=== PATIENT | male | born 1955 | race Caucasian/White ===

== ENCOUNTER 2017-11-28 10:07 | Day surgery (SDC) | payer OTHER ==
[2017-11-28] MEDS: NS 1,000 ML IV (10:00)
[2017-11-28] MEDS ORDERED: PROPOFOL 200 MG/20 ML VIAL As Ordered ×2 (10:49→11:18)
[2017-11-28] MEDS ORDERED: LIDOCAINE 2% INJ 100 MG/5 ML SDV (FOR ANES.) As Ordered (10:49)
[2017-11-28] MEDS ORDERED: fentaNYL 100 MCG/2 ML INJECTION (J3010) As Ordered (10:50)
== END 2017-11-28 12:28 | disposition home or self-care (01) ==
LOC: M OPP 10:07
DX: Z12.11 Encounter for screening for malignant neoplasm of colon (principal); D12.7 Benign neoplasm of rectosigmoid junction; D12.3 Benign neoplasm of transverse colon; D12.4 Benign neoplasm of descending colon; D12.5 Benign neoplasm of sigmoid colon; K57.30 Diverticulosis of large intestine without perforation or abscess without bleeding; R13.10 Dysphagia, unspecified; K29.70 Gastritis, unspecified, without bleeding; K29.80 Duodenitis without bleeding; K22.8 Other specified diseases of esophagus; K44.9 Diaphragmatic hernia without obstruction or gangrene; I10 Essential (primary) hypertension; M19.90 Unspecified osteoarthritis, unspecified site; Z79.82 Long term (current) use of aspirin; Z79.899 Other long term (current) drug therapy; Z83.71 Family history of colonic polyps
CPT/HCPCS: 45385

== ENCOUNTER 2018-03-16 18:10 | Emergency (ER) | payer OTHER ==
[2018-03-16] MEDS: NS 1,000 ML IV (19:19)
[2018-03-16 19:20] LABS: BASO % 0.6 % (0.0-1.0); EOS # 0.1 10^3/uL (0.0-0.50); EOS % 1.7 % (0.0-3.0); IMMATURE GRANULOCYTE % 0.2 % (0-3.0); LYMPH # 1.4 10^3/uL (1.5-4.5); LYMPH % 28.2 % (24.0-44.0); MEAN CORPUSCULAR HEMOGLOBIN 30.2 pg (27.0-33.0); MEAN CORPUSCULAR VOLUME 86.4 fl (80.0-96.0); MONO # 0.6 10^3/uL (0.0-0.8); MONO % 13.1 % (0.0-5.0); NEUTROPHILS # 2.7 10^3/uL (1.8-7.7); NEUTROPHILS % 56.2 % (36.0-66.0); PLATELET COUNT, AUTOMATED 184 10^3/uL (150-450); RED BLOOD COUNT 4.63 10^6/uL (4.30-6.10); RED CELL DISTRIBUTION WIDTH 13.2 % (11.5-14.5); WHITE BLOOD COUNT 4.8 10^3/uL (4.0-10.0)
[2018-03-16 19:57] LABS: ANION GAP 12 MEQ/L (8-16); BLOOD UREA NITROGEN 19 MG/DL (7-18); CALCIUM LEVEL 9.8 MG/DL (8.8-10.2); CARBON DIOXIDE LEVEL 25 MEQ/L (21-32); CHLORIDE LEVEL 98 MEQ/L (98-107); CPK CREATINE PHOSPHOKINASE 110 U/L (39-308); CREATININE FOR GFR 1.08 MG/DL (0.70-1.30); GLOMERULAR FILTRATION RATE > 60.0 (>49); GLUCOSE, FASTING 93 MG/DL (70-100); POTASSIUM SERUM 4.3 MEQ/L (3.5-5.1); SODIUM LEVEL 135 MEQ/L (136-145); TROPONIN I < 0.02 NG/ML (< 0.10)
[2018-03-16 20:02] LABS: CK-MB VALUE MASS 1.1 NG/ML (<3.6)
== END 2018-03-16 20:22 | disposition home or self-care (01) ==
LOC: M ED 18:10
DX: F41.1 Generalized anxiety disorder (principal); I10 Essential (primary) hypertension; M19.90 Unspecified osteoarthritis, unspecified site; M10.9 Gout, unspecified; K21.9 Gastro-esophageal reflux disease without esophagitis; Z79.899 Other long term (current) drug therapy; Z79.82 Long term (current) use of aspirin
CPT/HCPCS: 93005

== ENCOUNTER 2018-07-10 11:23 | Day surgery (SDC) | payer OTHER ==
[2018-07-10] MEDS: NS 1,000 ML IV (11:30)
[2018-07-10] MEDS ORDERED: LIDOCAINE 2% INJ 100 MG/5 ML SDV (FOR ANES.) As Ordered (12:21)
[2018-07-10] MEDS ORDERED: PROPOFOL 200 MG/20 ML VIAL As Ordered (12:21)
== END 2018-07-10 13:19 | disposition home or self-care (01) ==
LOC: M OPP 11:23
DX: Z09 Encounter for follow-up examination after completed treatment for conditions other than malignant neoplasm (principal); Z86.010 Personal history of colon polyps; D12.5 Benign neoplasm of sigmoid colon; K57.30 Diverticulosis of large intestine without perforation or abscess without bleeding; I10 Essential (primary) hypertension; Z79.82 Long term (current) use of aspirin; Z79.899 Other long term (current) drug therapy
CPT/HCPCS: 45385

== ENCOUNTER → 2020-05-03 | Outpatient (CLI) | payer BC, SELFPAY ==
[~2020-05-03] MED LIST: ALLO100T PO; ASPI-1 PO; LISI20TA20 PO; LISINOPRIL-HCTZ PO; OMEP40CA97 PO
== END ==
LOC: M LABSMTC 12:12
PROVIDERS: ATTEND Pediatrics
DX: Z11.59 Encounter for screening for other viral diseases (principal)

== ENCOUNTER → 2021-03-03 | Outpatient (CLI) | payer MEDICARE, BC ==
[~2021-03-03] MED LIST changes: +OMEP40CA4 PO; -OMEP40CA97 PO
--- NOTE | 2021-03-03 13:42 | REP ---
INDICATION: PAIN COMPARISON: None. TECHNIQUE: AP, lateral, bilateral oblique views left hand. FINDINGS: Generalized age-related changes are appreciated. There is no evidence for acute fracture or dislocation. Very small 1-2 mm presumed chronic foreign body identified in the soft tissue along the distal aspect of the 3rd proximal phalanx. Remainder of the examination appears relatively normal. IMPRESSION: Generalized age-related changes. <Electronically signed by John Crain > 03/03/21 [id number]
== END ==
LOC: M WUC 13:11
PROVIDERS: ATTEND Nurse Practitioner Family
DX: M79.645 Pain in left finger(s) (principal)

== ENCOUNTER 2022-01-11 06:25 | Emergency (ER) | payer MEDICARE, BC ==
[~2022-01-11] VITALS: Ht 177.8 cm; Wt 79.5 kg
[~2022-01-11 06:25] MED LIST changes: -LISI20TA20 PO; +LISI20TA37 PO
[2022-01-11 08:35] LABS: BASO % 0.4 % (0.0-1.0); EOS # 0.1 10^3/uL (0.0-0.5); EOS % 2.6 % (0.0-3.0); HEMOGLOBIN 14.1 g/dl (13.5-17.5); LYMPH # 1.6 10^3/uL (1.5-5.0); LYMPH % 34.2 % (24.0-44.0); MEAN CORPUSCULAR HEMOGLOBIN 31.1 pg (27.0-33.0); MEAN CORPUSCULAR HGB CONC 33.6 g/dl (32.0-36.5); MEAN CORPUSCULAR VOLUME 92.7 fl (80.0-96.0); MONO # 0.8 10^3/uL (0.0-0.8); MONO % 17.3 % (2.0-8.0); NEUTROPHILS # 2.1 10^3/uL (1.5-8.5); NEUTROPHILS % 45.3 % (36.0-66.0); PLATELET COUNT, AUTOMATED 172 10^3/uL (150-450); RED BLOOD COUNT 4.53 10^6/uL (4.30-6.10); WHITE BLOOD COUNT 4.7 10^3/uL (4.0-10.0)
[2022-01-11 08:46] LABS: INR 0.97; PROTHROMBIN TIME 13.3 SECONDS (12.7-14.5)
[2022-01-11 09:07] LABS: ALBUMIN 4.1 GM/DL (3.2-5.2); BILIRUBIN,DIRECT 0.1 MG/DL (0.0-0.2); BILIRUBIN,TOTAL 0.5 MG/DL (0.2-1.0); CALCIUM LEVEL 10.3 MG/DL (8.8-10.2); CREATININE FOR GFR 1.45 MG/DL (0.70-1.30); GLOMERULAR FILTRATION RATE 51.8 (>49); POTASSIUM SERUM 4.4 MEQ/L (3.5-5.1); TOTAL PROTEIN 8.4 GM/DL (6.4-8.2)
[2022-01-11 09:09] LABS: CK-MB VALUE MASS < 1.0 NG/ML (<3.6); CPK CREATINE PHOSPHOKINASE 89 U/L (39-308); MB/CK RELATIVE INDEX 1.12 (< OR =4)
[2022-01-11 10:26] LABS: CK-MB VALUE MASS < 1.0 NG/ML (<3.6); CPK CREATINE PHOSPHOKINASE 89 U/L (39-308); MB/CK RELATIVE INDEX 1.12 (< OR =4)
[2022-01-11 11:14] VITALS: BP 163/84
== END 2022-01-11 11:33 | disposition home or self-care (01) ==
LOC: M ED 06:25
DX: R07.9 Chest pain, unspecified (principal); R94.31 Abnormal electrocardiogram [ECG] [EKG]; I10 Essential (primary) hypertension; Z79.82 Long term (current) use of aspirin; Z79.899 Other long term (current) drug therapy

== ENCOUNTER → 2022-06-04 | Outpatient (CLI) | payer MEDICARE, BC | LOC: M LABSMTC 11:24 | PROVIDERS: ATTEND Anesthesiology | DX: Z01.812 Encounter for preprocedural laboratory examination (principal); Z20.822 Contact with and (suspected) exposure to COVID-19 ==

== ENCOUNTER 2022-06-07 09:51 | Day surgery (SDC) | payer MEDICARE, BC ==
[~2022-06-07] VITALS: Ht 177.8 cm; Wt 79.7 kg
[~2022-06-07 09:51] MED LIST changes: +NS 1,000 ML IV ONE
[2022-06-07] MEDS ORDERED: LIDOCAINE 2% 100MG/5ML SDV (FOR ANES.) As Ordered ONE (10:00)
[2022-06-07] MEDS ORDERED: propofoL 200 MG/20 ML VIAL As Ordered ONE (10:00)
[2022-06-07 11:33] VITALS: BP 100/67
== END 2022-06-07 11:50 | disposition home or self-care (01) ==
LOC: M OPP 09:51
PROVIDERS: ATTEND Surgery
DX: Z12.11 Encounter for screening for malignant neoplasm of colon (principal); Z86.010 Personal history of colon polyps; Z79.82 Long term (current) use of aspirin; Z79.899 Other long term (current) drug therapy; I10 Essential (primary) hypertension; M13.80 Other specified arthritis, unspecified site; Z87.39 Personal history of other diseases of the musculoskeletal system and connective tissue

== ENCOUNTER 2022-08-11 17:51 | Inpatient (IN) | payer MEDICARE, BC ==
[~2022-08-11] VITALS: Ht 177.8 cm; Wt 82.1 kg
[~2022-08-11 17:51] MED LIST changes: -NS 1,000 ML IV ONE
[2022-08-11] MEDS ORDERED: PRED20TA PO (18:05)
[2022-08-11] MEDS ORDERED: ONDANSETRON 4MG 2ML VIAL IV ONE (20:25)
[2022-08-11] MEDS ORDERED: MORPHINE 4 MG/ML 1ML VIAL IV ONE ×3 (20:25→23:45)
[2022-08-11] MEDS ORDERED: NS 1,000 ML IV ONE ×2 (20:30→22:40)
[2022-08-11 21:10] LABS: BASO % 0.1 % (0.0-1.0); EOS % 0.1 % (0.0-3.0); HEMATOCRIT 41.1 % (42.0-52.0); LYMPH # 1.8 10^3/uL (1.5-5.0); LYMPH % 10.4 % (24.0-44.0); MEAN CORPUSCULAR HEMOGLOBIN 30.6 pg (27.0-33.0); MEAN CORPUSCULAR HGB CONC 34.1 g/dl (32.0-36.5); MEAN CORPUSCULAR VOLUME 89.7 fl (80.0-96.0); MONO % 14.1 % (2.0-8.0); NEUTROPHILS # 12.7 10^3/uL (1.5-8.5); NEUTROPHILS % 74.8 % (36.0-66.0); PLATELET COUNT, AUTOMATED 236 10^3/uL (150-450); RED BLOOD COUNT 4.58 10^6/uL (4.30-6.10)
[2022-08-11 21:25] LABS: BILIRUBIN,TOTAL 0.8 MG/DL (0.3-1.2); CALCIUM LEVEL 9.8 MG/DL (8.3-10.6); CREATININE FOR GFR 1.46 MG/DL (0.70-1.30); GLOMERULAR FILTRATION RATE 51.4 (>49); POTASSIUM SERUM 5.1 MMOL/L (3.5-5.1); TOTAL PROTEIN 8.1 G/DL (5.7-8.2)
[2022-08-11 21:33] LABS: RSV AMPLIFICATION NEGATIVE (NEGATIVE)
[2022-08-11] MEDS ORDERED: ISOVUE-370 76% 100ML VIAL As Ordered ONE (21:35)
[2022-08-11 21:47] LABS: MONO # 2.4 10^3/uL (0.0-0.8)
[2022-08-11] MEDS ORDERED: PIPERACILLIN/TAZOBACTAM SOD 3.375 GM in D5W MINI-BAG PLUS 50 ML IV ONE (23:15)
[2022-08-11] MEDS ORDERED: VANCOMYCIN HCL 2,000 MG in IV FLUID PLACE HOLDER 1 EA IV ONE (23:15)
[2022-08-11] MEDS ORDERED: ASPI81TA26 PO (23:27)
[2022-08-11] MEDS ORDERED: HOME MED LIST COMPLETE! XX SCH (23:30)
[2022-08-12] MEDS ORDERED: VANCOMYCIN HCL 1,000 MG, VIAL MATE ADAPTER 1 EACH in D5W 250 ML IV ONE ×3
[2022-08-12] MEDS ORDERED: VANCOMYCIN HCL 1,000 MG, VIAL MATE ADAPTER 1 EACH in NS 250 ML IV SCH (00:10)
[2022-08-12] MEDS ORDERED: amLODIPine 5 MG TAB PO ONE (00:10)
[2022-08-12] MEDS ORDERED: LORazepam 2 MG TAB PO PRN (00:20)
[2022-08-12 00:22] LABS: C REACTIVE PROTEIN QUANTITATIV 15.5 MG/DL (<1.0)
[2022-08-12] MEDS ORDERED: LR 1,000 ML IV SCH (00:30)
[2022-08-12] MEDS ORDERED: **hydrALAZINE** 50 MG TAB PO PRN (00:50)
[2022-08-12] MEDS ORDERED: VANCOMYCIN HCL 750 MG, VIAL MATE ADAPTER 1 EACH in D5W 250 ML IV ONE ×6 (01:00)
[2022-08-12 02:00] VITALS: BP 162/98
[2022-08-12] MEDS: ACETAMINOPHEN TAB 650MG DOSE (2X325MG) PO PRN (02:34)
[2022-08-12] MEDS: MORPHINE 4 MG/ML 1ML VIAL IV PRN ×5 (02:34→19:51)
[2022-08-12] MEDS ORDERED: HYDROMORPHONE HCL 0.5 MG/ 0.5 ML SYRINGE (J1170 PER 1) IV ONE (03:15)
[2022-08-12 05:15] VITALS: BP 175/108
[2022-08-12 06:26] LABS: HEMATOCRIT 40.4 % (42.0-52.0); HEMOGLOBIN 13.6 g/dl (13.5-17.5); MEAN CORPUSCULAR HEMOGLOBIN 30.7 pg (27.0-33.0); MEAN CORPUSCULAR HGB CONC 33.7 g/dl (32.0-36.5); MEAN CORPUSCULAR VOLUME 91.2 fl (80.0-96.0); PLATELET COUNT, AUTOMATED 176 10^3/uL (150-450); RED BLOOD COUNT 4.43 10^6/uL (4.30-6.10); WHITE BLOOD COUNT 10.6 10^3/uL (4.0-10.0)
[2022-08-12] MEDS: PIPERACILLIN/TAZOBACTAM SOD 3.375 GM in D5W MINI-BAG PLUS 50 ML IV SCH ×3 (06:41→17:25)
[2022-08-12 06:54] LABS: MAGNESIUM LEVEL 1.5 MG/DL (1.8-2.4)
[2022-08-12 07:11] LABS: BLOOD UREA NITROGEN 22 MG/DL (9-23); CALCIUM LEVEL 8.7 MG/DL (8.3-10.6); CARBON DIOXIDE LEVEL 20 MMOL/L (20-31); CHLORIDE LEVEL 99 MMOL/L (98-107); CREATININE FOR GFR 1.13 MG/DL (0.70-1.30); GLOMERULAR FILTRATION RATE > 60.0 (>49); GLUCOSE, FASTING 107 MG/DL (74-106); SODIUM LEVEL 129 MMOL/L (136-145)
[2022-08-12 07:31] VITALS: BP 137/83
[2022-08-12] MEDS: MULTIVITAMINS/MINERALS THERAP 1 TAB PO SCH (08:11)
[2022-08-12] MEDS: THIAMINE 100 MG TAB PO SCH ×2 (08:11→19:50)
[2022-08-12] MEDS: FOLIC ACID 1MG TAB PO SCH (08:11)
[2022-08-12] MEDS: NS 1,000 ML IV SCH ×2 (08:11→17:24)
[2022-08-12] MEDS: ASPIRIN 81MG ENTERIC TABLET PO SCH (08:11)
[2022-08-12] MEDS ORDERED: amLODIPine 5 MG TAB PO SCH (09:00)
[2022-08-12] MEDS: ENOXAPARIN 30MG/0.3ML SYRINGE (J1650 PER 10MG) SC SCH (09:00)
[2022-08-12 09:23] LABS: ERYTHROCYTE SEDIMENTATION RATE 53 mm/hr (0-20)
[2022-08-12] MEDS: OXAZEPAM 15MG CAP PO SCH ×3 (12:00→23:25)
[2022-08-12] MEDS ORDERED: MAGNESIUM OXIDE 400MG TAB (MAG-OX) PO ONE (13:15)
[2022-08-12] MEDS: VANCOMYCIN HCL 1,000 MG, VIAL MATE ADAPTER 1 EACH in D5W 250 ML IV SCH (13:52)
[2022-08-12 14:00] VITALS: BP 134/82
[2022-08-12 14:48] LABS: BLOOD UREA NITROGEN 26 MG/DL (9-23); CALCIUM LEVEL 8.5 MG/DL (8.3-10.6); CARBON DIOXIDE LEVEL 22 MMOL/L (20-31); CHLORIDE LEVEL 98 MMOL/L (98-107); CREATININE FOR GFR 1.13 MG/DL (0.70-1.30); GLOMERULAR FILTRATION RATE > 60.0 (>49); GLUCOSE, FASTING 121 MG/DL (74-106); POTASSIUM SERUM 4.5 MMOL/L (3.5-5.1); SODIUM LEVEL 130 MMOL/L (136-145)
[2022-08-12 21:20] VITALS: BP 124/76
[2022-08-13] MEDS: PIPERACILLIN/TAZOBACTAM SOD 3.375 GM in D5W MINI-BAG PLUS 50 ML IV SCH ×2 (00:05→06:16)
[2022-08-13] MEDS: MORPHINE 4 MG/ML 1ML VIAL IV PRN ×4 (00:06→19:44)
[2022-08-13] MEDS: VANCOMYCIN HCL 1,000 MG, VIAL MATE ADAPTER 1 EACH in D5W 250 ML IV SCH ×2 (02:16→15:21)
[2022-08-13 04:50] VITALS: BP 110/73
[2022-08-13] MEDS: OXAZEPAM 15MG CAP PO SCH ×3 (04:52→18:00)
[2022-08-13 05:49] LABS: HEMATOCRIT 37.5 % (42.0-52.0); HEMOGLOBIN 12.5 g/dl (13.5-17.5); MEAN CORPUSCULAR HEMOGLOBIN 30.7 pg (27.0-33.0); MEAN CORPUSCULAR HGB CONC 33.3 g/dl (32.0-36.5); MEAN CORPUSCULAR VOLUME 92.1 fl (80.0-96.0); PLATELET COUNT, AUTOMATED 177 10^3/uL (150-450); RED BLOOD COUNT 4.07 10^6/uL (4.30-6.10); WHITE BLOOD COUNT 10.5 10^3/uL (4.0-10.0)
[2022-08-13 06:14] LABS: MAGNESIUM LEVEL 1.3 MG/DL (1.8-2.4)
[2022-08-13 06:16] LABS: BLOOD UREA NITROGEN 22 MG/DL (9-23); CALCIUM LEVEL 7.8 MG/DL (8.3-10.6); CARBON DIOXIDE LEVEL 20 MMOL/L (20-31); CHLORIDE LEVEL 99 MMOL/L (98-107); CREATININE FOR GFR 1.05 MG/DL (0.70-1.30); GLOMERULAR FILTRATION RATE > 60.0 (>49); GLUCOSE, FASTING 105 MG/DL (74-106); POTASSIUM SERUM 4.2 MMOL/L (3.5-5.1); SODIUM LEVEL 131 MMOL/L (136-145)
[2022-08-13 06:24] LABS: ERYTHROCYTE SEDIMENTATION RATE 62 mm/hr (0-20)
[2022-08-13 08:00] VITALS: BP 105/64
[2022-08-13] MEDS ORDERED: MAGNESIUM OXIDE 400MG TAB (MAG-OX) PO ONE (08:00)
[2022-08-13] MEDS: MULTIVITAMINS/MINERALS THERAP 1 TAB PO SCH (08:12)
[2022-08-13] MEDS: ASPIRIN 81MG ENTERIC TABLET PO SCH (08:12)
[2022-08-13] MEDS: FOLIC ACID 1MG TAB PO SCH (08:12)
[2022-08-13] MEDS: THIAMINE 100 MG TAB PO SCH ×2 (08:13→21:01)
[2022-08-13] MEDS: ENOXAPARIN 30MG/0.3ML SYRINGE (J1650 PER 10MG) SC SCH (08:15)
[2022-08-13] MEDS ORDERED: amLODIPine 5 MG TAB PO SCH (09:00)
[2022-08-13 14:00] VITALS: BP 103/64
[2022-08-13] MEDS ORDERED: PROHANCE 279.3MG/ML 15ML VIAL As Ordered ONE (17:30)
[2022-08-13 21:00] VITALS: BP 124/81
[2022-08-13] MEDS: ACETAMINOPHEN TAB 650MG DOSE (2X325MG) PO PRN (21:03)
[2022-08-14] MEDS: OXAZEPAM 15MG CAP PO SCH ×2 (00:30→06:02)
[2022-08-14] MEDS: MORPHINE 4 MG/ML 1ML VIAL IV PRN ×4 (00:34→20:02)
[2022-08-14] MEDS: VANCOMYCIN HCL 1,000 MG, VIAL MATE ADAPTER 1 EACH in D5W 250 ML IV SCH ×2 (02:50→14:30)
[2022-08-14 04:40] VITALS: BP 125/82
[2022-08-14 05:36] LABS: HEMATOCRIT 37.3 % (42.0-52.0); HEMOGLOBIN 12.6 g/dl (13.5-17.5); MEAN CORPUSCULAR HEMOGLOBIN 30.9 pg (27.0-33.0); MEAN CORPUSCULAR HGB CONC 33.8 g/dl (32.0-36.5); MEAN CORPUSCULAR VOLUME 91.4 fl (80.0-96.0); PLATELET COUNT, AUTOMATED 192 10^3/uL (150-450); RED BLOOD COUNT 4.08 10^6/uL (4.30-6.10); WHITE BLOOD COUNT 10.2 10^3/uL (4.0-10.0)
[2022-08-14 06:02] LABS: MAGNESIUM LEVEL 1.7 MG/DL (1.8-2.4)
[2022-08-14 06:04] LABS: BLOOD UREA NITROGEN 19 MG/DL (9-23); CALCIUM LEVEL 8.5 MG/DL (8.3-10.6); CARBON DIOXIDE LEVEL 26 MMOL/L (20-31); CHLORIDE LEVEL 98 MMOL/L (98-107); CREATININE FOR GFR 0.93 MG/DL (0.70-1.30); GLOMERULAR FILTRATION RATE > 60.0 (>49); GLUCOSE, FASTING 112 MG/DL (74-106); POTASSIUM SERUM 3.8 MMOL/L (3.5-5.1); SODIUM LEVEL 133 MMOL/L (136-145)
[2022-08-14] MEDS: FOLIC ACID 1MG TAB PO SCH (08:25)
[2022-08-14] MEDS: MAGNESIUM OXIDE 400MG TAB (MAG-OX) PO SCH ×2 (08:25→20:02)
[2022-08-14] MEDS: ASPIRIN 81MG ENTERIC TABLET PO SCH (08:25)
[2022-08-14] MEDS: MULTIVITAMINS/MINERALS THERAP 1 TAB PO SCH (08:25)
[2022-08-14] MEDS: THIAMINE 100 MG TAB PO SCH ×2 (08:25→20:02)
[2022-08-14] MEDS: ENOXAPARIN 40MG/0.4ML SYRINGE (J1650 PER 10MG) SC SCH (08:32)
[2022-08-14 13:52] VITALS: BP 124/81
[2022-08-14] MEDS: NS 1,000 ML IV SCH ×2 (14:30→20:15)
[2022-08-14] MEDS ORDERED: LIDOCAINE 2% 100MG/5ML SDV (FOR ANES.) As Ordered ONE (17:37)
[2022-08-14] MEDS ORDERED: propofoL 200 MG/20 ML VIAL As Ordered ONE ×2 (17:37→18:31)
[2022-08-14] MEDS ORDERED: MIDAZOLAM INJ 2MG/2ML VIAL (J2250 PER 1MG) As Ordered ONE (17:37)
[2022-08-14] MEDS ORDERED: fentaNYL 100 MCG/2 ML INJECTION As Ordered ONE (17:37)
[2022-08-14] MEDS ORDERED: LIDOCAINE 1% SDV 30ML VIAL As Ordered ONE (18:13)
[2022-08-14] MEDS: ACETAMINOPHEN TAB 650MG DOSE (2X325MG) PO PRN (20:02)
[2022-08-14 20:30] VITALS: BP 127/73
[2022-08-14 21:00] VITALS: BP 108/66
[2022-08-14 22:00] VITALS: BP 107/67
[2022-08-14 23:00] VITALS: BP 112/79
[2022-08-15 01:00] VITALS: BP 109/69
[2022-08-15] MEDS: VANCOMYCIN HCL 1,000 MG, VIAL MATE ADAPTER 1 EACH in D5W 250 ML IV SCH ×2 (02:18→14:48)
[2022-08-15 02:27] VITALS: BP 114/72
[2022-08-15] MEDS: NS 1,000 ML IV SCH ×3 (02:36→21:05)
[2022-08-15] MEDS: MORPHINE 4 MG/ML 1ML VIAL IV PRN ×3 (02:36→12:30)
[2022-08-15 05:00] VITALS: BP 111/77
[2022-08-15 06:22] LABS: HEMATOCRIT 34.1 % (42.0-52.0); HEMOGLOBIN 11.3 g/dl (13.5-17.5); MEAN CORPUSCULAR HEMOGLOBIN 30.6 pg (27.0-33.0); MEAN CORPUSCULAR HGB CONC 33.1 g/dl (32.0-36.5); MEAN CORPUSCULAR VOLUME 92.4 fl (80.0-96.0); PLATELET COUNT, AUTOMATED 209 10^3/uL (150-450); RED BLOOD COUNT 3.69 10^6/uL (4.30-6.10); WHITE BLOOD COUNT 10.3 10^3/uL (4.0-10.0)
[2022-08-15 06:55] LABS: MAGNESIUM LEVEL 1.7 MG/DL (1.8-2.4)
[2022-08-15 06:57] LABS: BLOOD UREA NITROGEN 21 MG/DL (9-23); CALCIUM LEVEL 8.3 MG/DL (8.3-10.6); CARBON DIOXIDE LEVEL 26 MMOL/L (20-31); CHLORIDE LEVEL 97 MMOL/L (98-107); CREATININE FOR GFR 1.14 MG/DL (0.70-1.30); GLOMERULAR FILTRATION RATE > 60.0 (>49); GLUCOSE, FASTING 104 MG/DL (74-106); POTASSIUM SERUM 3.7 MMOL/L (3.5-5.1); SODIUM LEVEL 132 MMOL/L (136-145)
[2022-08-15] MEDS ORDERED: MAG SULF 1GM/100ML (MAG RUN) 1 GM in IV 1 EA IV ONE (08:00)
[2022-08-15] MEDS: FOLIC ACID 1MG TAB PO SCH (08:30)
[2022-08-15] MEDS: ASPIRIN 81MG ENTERIC TABLET PO SCH (08:30)
[2022-08-15] MEDS: ENOXAPARIN 40MG/0.4ML SYRINGE (J1650 PER 10MG) SC SCH (08:30)
[2022-08-15] MEDS: MAGNESIUM OXIDE 400MG TAB (MAG-OX) PO SCH ×2 (08:30→21:06)
[2022-08-15] MEDS: MULTIVITAMINS/MINERALS THERAP 1 TAB PO SCH (08:30)
[2022-08-15 14:00] VITALS: BP 126/74
[2022-08-15] MEDS ORDERED: CETACAINE SPRAY 5GM As Ordered ONE (15:31)
[2022-08-15] MEDS ORDERED: LIDOCAINE VISCOUS 2% SOLN 15ML UDC As Ordered ONE (15:31)
[2022-08-15] MEDS ORDERED: fentaNYL 100 MCG/2 ML INJECTION As Ordered ONE (17:25)
[2022-08-15] MEDS ORDERED: propofoL 500 MG/50 ML VIAL As Ordered ONE (17:25)
[2022-08-15] MEDS ORDERED: MIDAZOLAM INJ 2MG/2ML VIAL (J2250 PER 1MG) As Ordered ONE (17:25)
[2022-08-15] MEDS ORDERED: LR 1,000 ML IV SCH (18:20)
[2022-08-15] MEDS ORDERED: ONDANSETRON 4MG 2ML VIAL IV PRN (18:20)
[2022-08-15 19:01] VITALS: BP 121/75
[2022-08-15 22:00] VITALS: BP 117/72
[2022-08-16] MEDS: MORPHINE 4 MG/ML 1ML VIAL IV PRN ×4 (00:16→20:59)
[2022-08-16] MEDS: VANCOMYCIN HCL 1,000 MG, VIAL MATE ADAPTER 1 EACH in D5W 250 ML IV SCH ×2 (01:56→15:08)
[2022-08-16] MEDS: NS 1,000 ML IV SCH ×3 (04:16→20:59)
[2022-08-16 06:00] VITALS: BP_SYST 113; BP_SYST 142; BP_DIAS 67; BP_DIAS 78
[2022-08-16 06:25] LABS: HEMATOCRIT 32.9 % (42.0-52.0); HEMOGLOBIN 11.2 g/dl (13.5-17.5); MEAN CORPUSCULAR HEMOGLOBIN 31.3 pg (27.0-33.0); MEAN CORPUSCULAR VOLUME 91.9 fl (80.0-96.0); PLATELET COUNT, AUTOMATED 194 10^3/uL (150-450); RED BLOOD COUNT 3.58 10^6/uL (4.30-6.10); WHITE BLOOD COUNT 8.9 10^3/uL (4.0-10.0)
[2022-08-16 06:44] LABS: MAGNESIUM LEVEL 1.7 MG/DL (1.8-2.4)
[2022-08-16 06:46] LABS: BLOOD UREA NITROGEN 16 MG/DL (9-23); CALCIUM LEVEL 8.1 MG/DL (8.3-10.6); CARBON DIOXIDE LEVEL 27 MMOL/L (20-31); CHLORIDE LEVEL 98 MMOL/L (98-107); CREATININE FOR GFR 1.02 MG/DL (0.70-1.30); GLOMERULAR FILTRATION RATE > 60.0 (>49); GLUCOSE, FASTING 100 MG/DL (74-106); POTASSIUM SERUM 3.6 MMOL/L (3.5-5.1); SODIUM LEVEL 134 MMOL/L (136-145)
[2022-08-16 08:22] LABS: INR 1.11; PROTHROMBIN TIME 14.5 SECONDS (12.5-14.5)
[2022-08-16 08:23] LABS: PARTIAL THROMBOPLASTIN TIME 32.6 SECONDS (24.8-34.2)
[2022-08-16] MEDS: MULTIVITAMINS/MINERALS THERAP 1 TAB PO SCH (08:50)
[2022-08-16] MEDS: ASPIRIN 81MG ENTERIC TABLET PO SCH (08:50)
[2022-08-16] MEDS: MAGNESIUM OXIDE 400MG TAB (MAG-OX) PO SCH ×3 (08:50→20:59)
[2022-08-16] MEDS: FOLIC ACID 1MG TAB PO SCH (08:50)
[2022-08-16] MEDS: ENOXAPARIN 40MG/0.4ML SYRINGE (J1650 PER 10MG) SC SCH (08:52)
[2022-08-16 09:19] VITALS: BP 107/74
[2022-08-16 14:00] VITALS: BP 110/69
[2022-08-16 15:16] LABS: ERYTHROCYTE SEDIMENTATION RATE 126 mm/hr (0-20)
[2022-08-16] MEDS: MORPHINE 2 MG/ML 1ML VIAL IV PRN (16:51)
[2022-08-16 21:55] VITALS: BP 120/70
[2022-08-17] MEDS: MORPHINE 4 MG/ML 1ML VIAL IV PRN ×6 (00:36→23:15)
[2022-08-17] MEDS: VANCOMYCIN HCL 1,000 MG, VIAL MATE ADAPTER 1 EACH in D5W 250 ML IV SCH ×2 (02:08→14:14)
[2022-08-17] MEDS: NS 1,000 ML IV SCH ×2 (05:34→23:15)
[2022-08-17 05:42] VITALS: BP 114/65
[2022-08-17 06:12] LABS: HEMATOCRIT 31.6 % (42.0-52.0); HEMOGLOBIN 10.6 g/dl (13.5-17.5); MEAN CORPUSCULAR HEMOGLOBIN 30.8 pg (27.0-33.0); MEAN CORPUSCULAR HGB CONC 33.5 g/dl (32.0-36.5); MEAN CORPUSCULAR VOLUME 91.9 fl (80.0-96.0); PLATELET COUNT, AUTOMATED 195 10^3/uL (150-450); RED BLOOD COUNT 3.44 10^6/uL (4.30-6.10); WHITE BLOOD COUNT 9.8 10^3/uL (4.0-10.0)
[2022-08-17 06:33] LABS: MAGNESIUM LEVEL 1.6 MG/DL (1.8-2.4)
[2022-08-17 06:35] LABS: BLOOD UREA NITROGEN 13 MG/DL (9-23); CALCIUM LEVEL 7.9 MG/DL (8.3-10.6); CARBON DIOXIDE LEVEL 26 MMOL/L (20-31); CHLORIDE LEVEL 96 MMOL/L (98-107); CREATININE FOR GFR 1.03 MG/DL (0.70-1.30); GLOMERULAR FILTRATION RATE > 60.0 (>49); GLUCOSE, FASTING 98 MG/DL (74-106); POTASSIUM SERUM 3.6 MMOL/L (3.5-5.1); SODIUM LEVEL 132 MMOL/L (136-145)
[2022-08-17] MEDS: MULTIVITAMINS/MINERALS THERAP 1 TAB PO SCH (08:49)
[2022-08-17] MEDS: MAGNESIUM OXIDE 400MG TAB (MAG-OX) PO SCH ×3 (08:49→20:29)
[2022-08-17] MEDS: ASPIRIN 81MG ENTERIC TABLET PO SCH (08:49)
[2022-08-17] MEDS: ENOXAPARIN 40MG/0.4ML SYRINGE (J1650 PER 10MG) SC SCH (08:50)
[2022-08-17] MEDS: FOLIC ACID 1MG TAB PO SCH (08:50)
[2022-08-17] MEDS ORDERED: LIDOCAINE 1% MDV 20ML VIAL As Ordered ONE (10:26)
[2022-08-17 12:20] VITALS: BP 142/52
[2022-08-17 12:38] LABS: URIC ACID 6.6 MG/DL (3.7-9.2)
[2022-08-17 14:00] VITALS: BP 132/54
[2022-08-17] MEDS: SODIUM CHLORIDE 0.9% INJ 10 ML SYR IV SCH (15:27)
[2022-08-17] MEDS ORDERED: MAG SULF 1GM/100ML (MAG RUN) 1 GM in IV 1 EA IV ONE (18:00)
[2022-08-17] MEDS: SODIUM CHLORIDE 0.9% INJ 10 ML SYR IV PRN (19:18)
[2022-08-17 22:00] VITALS: BP 109/72
[2022-08-18] VITALS (12 sets, daily range): BP systolic 100–182; BP diastolic 61–84
[2022-08-18] MEDS: VANCOMYCIN HCL 1,000 MG, VIAL MATE ADAPTER 1 EACH in D5W 250 ML IV SCH ×2 (02:31→14:52)
[2022-08-18] MEDS: SODIUM CHLORIDE 0.9% INJ 10 ML SYR IV SCH ×2 (05:19→17:03)
[2022-08-18 05:48] LABS: HEMATOCRIT 33.7 % (42.0-52.0); HEMOGLOBIN 11.2 g/dl (13.5-17.5); MEAN CORPUSCULAR HEMOGLOBIN 30.4 pg (27.0-33.0); MEAN CORPUSCULAR HGB CONC 33.2 g/dl (32.0-36.5); MEAN CORPUSCULAR VOLUME 91.3 fl (80.0-96.0); PLATELET COUNT, AUTOMATED 262 10^3/uL (150-450); RED BLOOD COUNT 3.69 10^6/uL (4.30-6.10); WHITE BLOOD COUNT 14.2 10^3/uL (4.0-10.0)
[2022-08-18 06:42] LABS: ALBUMIN 2.1 G/DL (3.2-5.2); ALKALINE PHOSPHATASE 79 U/L (46-116); ALT/SGPT 41 U/L (7.0-40); AST/SGOT 35 U/L (<34); BILIRUBIN,TOTAL 0.8 MG/DL (0.3-1.2); BLOOD UREA NITROGEN 17 MG/DL (9-23); CALCIUM LEVEL 8.3 MG/DL (8.3-10.6); CARBON DIOXIDE LEVEL 21 MMOL/L (20-31); CHLORIDE LEVEL 96 MMOL/L (98-107); GLOMERULAR FILTRATION RATE > 60.0 (>49); GLUCOSE, FASTING 101 MG/DL (74-106); POTASSIUM SERUM 3.9 MMOL/L (3.5-5.1); SODIUM LEVEL 132 MMOL/L (136-145); TOTAL PROTEIN 6.2 G/DL (5.7-8.2)
[2022-08-18] MEDS: NS 1,000 ML IV SCH (08:08)
[2022-08-18] MEDS ORDERED: propofoL 200 MG/20 ML VIAL As Ordered ONE (08:17)
[2022-08-18] MEDS ORDERED: MIDAZOLAM INJ 2MG/2ML VIAL (J2250 PER 1MG) As Ordered ONE (08:17)
[2022-08-18] MEDS ORDERED: LIDOCAINE 2% 100MG/5ML SDV (FOR ANES.) As Ordered ONE (08:17)
[2022-08-18] MEDS ORDERED: fentaNYL 100 MCG/2 ML INJECTION As Ordered ONE (08:17)
[2022-08-18] MEDS ORDERED: ACETAMINOPHEN 1000MG 100ML IV BAG As Ordered ONE (08:22)
[2022-08-18] MEDS ORDERED: ONDANSETRON 4MG 2ML VIAL As Ordered ONE (08:22)
[2022-08-18] MEDS ORDERED: VANCOMYCIN 1000MG/20ML VIAL As Ordered ONE (08:34)
[2022-08-18] MEDS ORDERED: ceFAZolin 1GM VIAL As Ordered ONE (08:36)
[2022-08-18] MEDS ORDERED: HYDROmorphone HCL 2MG/ML 1ML VIAL As Ordered ONE (08:51)
[2022-08-18] MEDS: ASPIRIN 81MG ENTERIC TABLET PO SCH (10:49)
[2022-08-18] MEDS: MULTIVITAMINS/MINERALS THERAP 1 TAB PO SCH (10:49)
[2022-08-18] MEDS: MAGNESIUM OXIDE 400MG TAB (MAG-OX) PO SCH ×3 (10:49→21:24)
[2022-08-18] MEDS: FOLIC ACID 1MG TAB PO SCH (10:50)
[2022-08-18 11:22] LABS: SOURCE, BODY FLUID LFT KNEE; SYNOVIAL FLUID COLOR YELLOW (COLORLESS)
[2022-08-18 11:30] LABS: SOURCE, BODY FLUID CRYSTALS LFT KNEE
[2022-08-18 11:38] LABS: CRYSTALS, BODY FLUID URIC ACID AND CCP (NONE SEEN)
[2022-08-18 11:45] LABS: CRYSTALS, BODY FLUID URIC ACID AND CCP (NONE SEEN)
[2022-08-18 11:47] LABS: SOURCE, BODY FLUID CRYSTALS OTHER
[2022-08-18] MEDS: ACETAMINOPHEN TAB 650MG DOSE (2X325MG) PO PRN ×2 (15:50→21:25)
[2022-08-19] MEDS: VANCOMYCIN HCL 1,000 MG, VIAL MATE ADAPTER 1 EACH in D5W 250 ML IV SCH ×2 (02:50→14:57)
[2022-08-19 03:00] VITALS: BP 145/81
[2022-08-19] MEDS: SODIUM CHLORIDE 0.9% INJ 10 ML SYR IV SCH ×2 (05:11→18:26)
[2022-08-19 06:23] LABS: HEMATOCRIT 29.6 % (42.0-52.0); MEAN CORPUSCULAR HEMOGLOBIN 30.9 pg (27.0-33.0); MEAN CORPUSCULAR HGB CONC 33.8 g/dl (32.0-36.5); MEAN CORPUSCULAR VOLUME 91.4 fl (80.0-96.0); PLATELET COUNT, AUTOMATED 200 10^3/uL (150-450); RED BLOOD COUNT 3.24 10^6/uL (4.30-6.10); WHITE BLOOD COUNT 11.1 10^3/uL (4.0-10.0)
[2022-08-19 06:48] LABS: MAGNESIUM LEVEL 2.1 MG/DL (1.8-2.4)
[2022-08-19 06:50] LABS: ALKALINE PHOSPHATASE 86 U/L (46-116); ALT/SGPT 51 U/L (7.0-40); AST/SGOT 47 U/L (<34); BILIRUBIN,TOTAL 0.4 MG/DL (0.3-1.2); BLOOD UREA NITROGEN 21 MG/DL (9-23); CALCIUM LEVEL 8.2 MG/DL (8.3-10.6); CARBON DIOXIDE LEVEL 25 MMOL/L (20-31); CHLORIDE LEVEL 100 MMOL/L (98-107); CREATININE FOR GFR 0.88 MG/DL (0.70-1.30); GLOMERULAR FILTRATION RATE > 60.0 (>49); GLUCOSE, FASTING 139 MG/DL (74-106); POTASSIUM SERUM 3.8 MMOL/L (3.5-5.1); SODIUM LEVEL 136 MMOL/L (136-145); TOTAL PROTEIN 5.6 G/DL (5.7-8.2)
[2022-08-19 07:17] VITALS: BP 135/72
[2022-08-19] MEDS ORDERED: predniSONE 20 MG TAB PO SCH (09:00)
[2022-08-19] MEDS: MULTIVITAMINS/MINERALS THERAP 1 TAB PO SCH (09:47)
[2022-08-19] MEDS: ASPIRIN 81MG ENTERIC TABLET PO SCH (09:47)
[2022-08-19] MEDS: FOLIC ACID 1MG TAB PO SCH (09:47)
[2022-08-19] MEDS: MAGNESIUM OXIDE 400MG TAB (MAG-OX) PO SCH ×3 (09:48→21:04)
[2022-08-19 11:00] VITALS: BP 139/63
[2022-08-19 14:00] VITALS: BP 137/75
[2022-08-19 20:44] VITALS: BP 133/64
[2022-08-20] VITALS (7 sets, daily range): BP systolic 111–150; BP diastolic 66–81
[2022-08-20] MEDS: VANCOMYCIN HCL 1,000 MG, VIAL MATE ADAPTER 1 EACH in D5W 250 ML IV SCH ×2 (01:58→15:53)
[2022-08-20] MEDS: SODIUM CHLORIDE 0.9% INJ 10 ML SYR IV SCH ×2 (05:32→17:59)
[2022-08-20 06:20] LABS: HEMATOCRIT 30.2 % (42.0-52.0); HEMOGLOBIN 10.1 g/dl (13.5-17.5); MEAN CORPUSCULAR HEMOGLOBIN 30.5 pg (27.0-33.0); MEAN CORPUSCULAR HGB CONC 33.4 g/dl (32.0-36.5); MEAN CORPUSCULAR VOLUME 91.2 fl (80.0-96.0); PLATELET COUNT, AUTOMATED 252 10^3/uL (150-450); RED BLOOD COUNT 3.31 10^6/uL (4.30-6.10)
[2022-08-20 06:54] LABS: MAGNESIUM LEVEL 2.1 MG/DL (1.8-2.4)
[2022-08-20 07:01] LABS: ALKALINE PHOSPHATASE 92 U/L (46-116); ALT/SGPT 59 U/L (7.0-40); AST/SGOT 47 U/L (<34); BILIRUBIN,TOTAL 0.3 MG/DL (0.3-1.2); BLOOD UREA NITROGEN 24 MG/DL (9-23); CALCIUM LEVEL 8.1 MG/DL (8.3-10.6); CARBON DIOXIDE LEVEL 26 MMOL/L (20-31); CHLORIDE LEVEL 100 MMOL/L (98-107); CREATININE FOR GFR 0.96 MG/DL (0.70-1.30); GLOMERULAR FILTRATION RATE > 60.0 (>49); GLUCOSE, FASTING 110 MG/DL (74-106); POTASSIUM SERUM 3.5 MMOL/L (3.5-5.1); SODIUM LEVEL 137 MMOL/L (136-145)
[2022-08-20] MEDS: MULTIVITAMINS/MINERALS THERAP 1 TAB PO SCH (09:32)
[2022-08-20] MEDS: ASPIRIN 81MG ENTERIC TABLET PO SCH (09:32)
[2022-08-20] MEDS: FOLIC ACID 1MG TAB PO SCH (09:32)
[2022-08-20] MEDS: MAGNESIUM OXIDE 400MG TAB (MAG-OX) PO SCH ×3 (09:32→20:24)
[2022-08-20] MEDS: MORPHINE 2 MG/ML 1ML VIAL IV PRN (09:32)
[2022-08-20] MEDS ORDERED: propofoL 200 MG/20 ML VIAL As Ordered ONE (12:02)
[2022-08-20] MEDS ORDERED: LIDOCAINE 2% 100MG/5ML SDV (FOR ANES.) As Ordered ONE (12:02)
[2022-08-20] MEDS ORDERED: ONDANSETRON 4MG 2ML VIAL As Ordered ONE (12:02)
[2022-08-20] MEDS ORDERED: MIDAZOLAM INJ 2MG/2ML VIAL (J2250 PER 1MG) As Ordered ONE (12:02)
[2022-08-20] MEDS ORDERED: KETOROLAC 60MG 2ML VIAL As Ordered ONE (12:02)
[2022-08-20] MEDS ORDERED: fentaNYL 100 MCG/2 ML INJECTION As Ordered ONE (12:03)
[2022-08-20] MEDS ORDERED: LR 1,000 ML IV SCH (13:15)
[2022-08-20] MEDS ORDERED: fentaNYL 100 MCG/2 ML INJECTION IV PRN (13:15)
[2022-08-20] MEDS ORDERED: oxyCODONE 5MG TAB PO PRN (13:15)
[2022-08-20] MEDS ORDERED: ONDANSETRON 4MG 2ML VIAL IV PRN (13:15)
[2022-08-20] MEDS ORDERED: HYDROMORPHONE HCL 0.5 MG/ 0.5 ML SYRINGE (J1170 PER 1) IV PRN (13:15)
[2022-08-20] MEDS: SODIUM CHLORIDE 0.9% INJ 10 ML SYR IV PRN (20:25)
[2022-08-20] MEDS: MORPHINE 4 MG/ML 1ML VIAL IV PRN (20:25)
[2022-08-21 00:04] VITALS: BP 124/71
[2022-08-21] MEDS: VANCOMYCIN HCL 1,000 MG, VIAL MATE ADAPTER 1 EACH in D5W 250 ML IV SCH (02:55)
[2022-08-21] MEDS: MORPHINE 4 MG/ML 1ML VIAL IV PRN ×3 (04:28→16:23)
[2022-08-21] MEDS: SODIUM CHLORIDE 0.9% INJ 10 ML SYR IV PRN (04:30)
[2022-08-21 05:24] VITALS: BP 126/71
[2022-08-21] MEDS: SODIUM CHLORIDE 0.9% INJ 10 ML SYR IV SCH (06:00)
[2022-08-21 06:13] LABS: HEMATOCRIT 28.4 % (42.0-52.0); HEMOGLOBIN 9.3 g/dl (13.5-17.5); MEAN CORPUSCULAR HEMOGLOBIN 30.4 pg (27.0-33.0); MEAN CORPUSCULAR HGB CONC 32.7 g/dl (32.0-36.5); MEAN CORPUSCULAR VOLUME 92.8 fl (80.0-96.0); PLATELET COUNT, AUTOMATED 254 10^3/uL (150-450); RED BLOOD COUNT 3.06 10^6/uL (4.30-6.10); WHITE BLOOD COUNT 9.6 10^3/uL (4.0-10.0)
[2022-08-21 06:48] LABS: MAGNESIUM LEVEL 2.5 MG/DL (1.8-2.4)
[2022-08-21 06:50] LABS: ALKALINE PHOSPHATASE 77 U/L (46-116); ALT/SGPT 70 U/L (7.0-40); AST/SGOT 53 U/L (<34); BILIRUBIN,TOTAL 0.3 MG/DL (0.3-1.2); BLOOD UREA NITROGEN 33 MG/DL (9-23); CALCIUM LEVEL 7.6 MG/DL (8.3-10.6); CARBON DIOXIDE LEVEL 27 MMOL/L (20-31); CHLORIDE LEVEL 100 MMOL/L (98-107); CREATININE FOR GFR 1.11 MG/DL (0.70-1.30); GLOMERULAR FILTRATION RATE > 60.0 (>49); GLUCOSE, FASTING 107 MG/DL (74-106); SODIUM LEVEL 136 MMOL/L (136-145); TOTAL PROTEIN 5.8 G/DL (5.7-8.2)
[2022-08-21] MEDS: FOLIC ACID 1MG TAB PO SCH (09:06)
[2022-08-21] MEDS: ASPIRIN 81MG ENTERIC TABLET PO SCH (09:06)
[2022-08-21] MEDS: MULTIVITAMINS/MINERALS THERAP 1 TAB PO SCH (09:06)
[2022-08-21] MEDS: MAGNESIUM OXIDE 400MG TAB (MAG-OX) PO SCH ×2 (09:07→16:25)
[2022-08-21 09:08] VITALS: BP 178/93
[2022-08-21 10:00] VITALS: BP 152/72
[2022-08-21] MEDS ORDERED: VITMTA PO (10:22)
[2022-08-21] MEDS ORDERED: ACET1TAB55 PO (10:22)
[2022-08-21] MEDS ORDERED: FOLI1TAB11 PO (10:22)
[2022-08-21] MEDS ORDERED: OXYC-517 PO (10:33)
[2022-08-21] MEDS ORDERED: DAPTOmycin 750 MG in NS 50 ML IV SCH (17:00)
== END 2022-08-21 17:54 | disposition home or self-care (01) | DRG 854 ==
LOC: M ED 17:51 → EEVIPCON 08-12 00:10 → M ED INP 08-12 00:10 → M MSPAV 08-12 02:02
PROVIDERS: ADMIT Internal Medicine; ATTEND Family Medicine
PROC: 02HV33Z Insertion of Infusion Device into Superior Vena Cava, Percutaneous Approach (ICD-10-PCS; 2022-08-17)
PROC: 0S9D0ZZ Drainage of Left Knee Joint, Open Approach (ICD-10-PCS; 2022-08-18)
PROC: 0SBD0ZZ Excision of Left Knee Joint, Open Approach (ICD-10-PCS; 2022-08-18)
PROC: 0R9P0ZZ Drainage of Left Wrist Joint, Open Approach (ICD-10-PCS; principal; 2022-08-18 08:30)
PROC: 0SBD0ZZ Excision of Left Knee Joint, Open Approach (ICD-10-PCS; 2022-08-20)
DX: A41.02 Sepsis due to Methicillin resistant Staphylococcus aureus (principal); E87.1 Hypo-osmolality and hyponatremia; N17.9 Acute kidney failure, unspecified; M00.832 Arthritis due to other bacteria, left wrist; L02.414 Cutaneous abscess of left upper limb; M00.862 Arthritis due to other bacteria, left knee; I10 Essential (primary) hypertension; I16.0 Hypertensive urgency; B95.62 Methicillin resistant Staphylococcus aureus infection as the cause of diseases classified elsewhere; M10.00 Idiopathic gout, unspecified site; F10.10 Alcohol abuse, uncomplicated; E83.42 Hypomagnesemia; Z79.82 Long term (current) use of aspirin; Z79.899 Other long term (current) drug therapy; Z79.52 Long term (current) use of systemic steroids

== ENCOUNTER → 2022-08-28 | Outpatient (CLI) | payer MEDICARE, BC ==
[~2022-08-28] MED LIST changes: +ACET1TAB55 PO; +ASPI81TA26 PO; +FOLI1TAB11 PO; +OXYC-517 PO; +PRED20TA PO; +VITMTA PO
== END ==
LOC: M SOG 10:18
PROVIDERS: ATTEND Physician Assistant
DX: M00.832 Arthritis due to other bacteria, left wrist (principal); M00.862 Arthritis due to other bacteria, left knee

== ENCOUNTER → 2022-08-28 | Outpatient (CLI) | payer MEDICARE, BC ==
[2022-08-28 17:20] LABS: HEMATOCRIT 37.8 % (42.0-52.0); HEMOGLOBIN 11.8 g/dl (13.5-17.5); MEAN CORPUSCULAR HEMOGLOBIN 29.7 pg (27.0-33.0); MEAN CORPUSCULAR HGB CONC 31.2 g/dl (32.0-36.5); MEAN CORPUSCULAR VOLUME 95.2 fl (80.0-96.0); PLATELET COUNT, AUTOMATED 357 10^3/uL (150-450); RED BLOOD COUNT 3.97 10^6/uL (4.30-6.10)
[2022-08-28 17:32] LABS: ERYTHROCYTE SEDIMENTATION RATE 110 mm/hr (0-20)
[2022-08-28 17:50] LABS: BLOOD UREA NITROGEN 25 MG/DL (9-23); CALCIUM LEVEL 9.2 MG/DL (8.3-10.6); CARBON DIOXIDE LEVEL 23 MMOL/L (20-31); CHLORIDE LEVEL 100 MMOL/L (98-107); CREATININE FOR GFR 1.27 MG/DL (0.70-1.30); GLOMERULAR FILTRATION RATE > 60.0 (>49); GLUCOSE, FASTING 90 MG/DL (74-106); POTASSIUM SERUM 4.8 MMOL/L (3.5-5.1); SODIUM LEVEL 135 MMOL/L (136-145)
[2022-08-28 17:51] LABS: CPK CREATINE PHOSPHOKINASE 42 U/L (46-171)
== END ==
LOC: M PLALAB 14:34
PROVIDERS: ATTEND Internal Medicine Infectious Disease
DX: A41.02 Sepsis due to Methicillin resistant Staphylococcus aureus (principal)

== ENCOUNTER 2022-09-01 16:55 | Inpatient (IN) | payer MEDICARE, BC ==
[~2022-09-01] VITALS: Ht 177.8 cm; Wt 75.5 kg
[2022-09-01 19:18] LABS: BASO # 0.1 10^3/uL (0.0-0.2); BASO % 0.7 % (0.0-1.0); EOS # 0.1 10^3/uL (0.0-0.5); EOS % 1.6 % (0.0-3.0); HEMATOCRIT 32.3 % (42.0-52.0); HEMOGLOBIN 10.7 g/dl (13.5-17.5); LYMPH # 1.8 10^3/uL (1.5-5.0); LYMPH % 21.9 % (24.0-44.0); MEAN CORPUSCULAR HEMOGLOBIN 30.4 pg (27.0-33.0); MEAN CORPUSCULAR HGB CONC 33.1 g/dl (32.0-36.5); MEAN CORPUSCULAR VOLUME 91.8 fl (80.0-96.0); MONO # 0.8 10^3/uL (0.0-0.8); MONO % 9.5 % (2.0-8.0); NEUTROPHILS # 5.4 10^3/uL (1.5-8.5); NEUTROPHILS % 65.9 % (36.0-66.0); PLATELET COUNT, AUTOMATED 347 10^3/uL (150-450); RED BLOOD COUNT 3.52 10^6/uL (4.30-6.10); WHITE BLOOD COUNT 8.2 10^3/uL (4.0-10.0)
[2022-09-01 19:23] LABS: ERYTHROCYTE SEDIMENTATION RATE 103 mm/hr (0-20)
[2022-09-01 19:42] LABS: C REACTIVE PROTEIN QUANTITATIV 7.4 MG/DL (<1.0); CREATININE FOR GFR 1.55 MG/DL (0.70-1.30); POTASSIUM SERUM 3.9 MMOL/L (3.5-5.1)
[2022-09-01] MEDS ORDERED: NS 1,000 ML IV ONE (20:05)
[2022-09-01] MEDS ORDERED: VANCOMYCIN HCL 1,500 MG in IV FLUID PLACE HOLDER 1 EA IV ONE (21:30)
[2022-09-01] MEDS ORDERED: VANCOMYCIN HCL 750 MG, VIAL MATE ADAPTER 1 EACH in D5W 250 ML IV ONE ×6 (22:00)
[2022-09-01] MEDS ORDERED: FOLI1TAB11 PO (22:30)
[2022-09-01] MEDS ORDERED: OXYC-517 PO (22:32)
[2022-09-01] MEDS ORDERED: HOME MED LIST COMPLETE! XX SCH (22:35)
[2022-09-01] MEDS ORDERED: VANCOMYCIN HCL 750 MG, VIAL MATE ADAPTER 1 EACH in NS 250 ML IV SCH (22:50)
[2022-09-01 23:03] LABS: RSV AMPLIFICATION NEGATIVE (NEGATIVE)
[2022-09-02 01:30] VITALS: BP 132/82
[2022-09-02] MEDS: NS 1,000 ML IV SCH ×3 (03:10→17:47)
[2022-09-02] MEDS ORDERED: SODIUM CHLORIDE 0.9% INJ 10 ML SYR IV PRN (03:30)
[2022-09-02] MEDS ORDERED: carisoprodoL 350 MG TAB PO ONE (04:00)
[2022-09-02] MEDS: SODIUM CHLORIDE 0.9% INJ 10 ML SYR IV SCH ×2 (05:34→17:50)
[2022-09-02 06:00] VITALS: BP 126/80
[2022-09-02 06:26] LABS: BASO # 0.1 10^3/uL (0.0-0.2); BASO % 0.8 % (0.0-1.0); EOS # 0.2 10^3/uL (0.0-0.5); EOS % 2.3 % (0.0-3.0); HEMATOCRIT 28.5 % (42.0-52.0); HEMOGLOBIN 9.3 g/dl (13.5-17.5); LYMPH # 1.4 10^3/uL (1.5-5.0); LYMPH % 20.5 % (24.0-44.0); MEAN CORPUSCULAR HEMOGLOBIN 29.5 pg (27.0-33.0); MEAN CORPUSCULAR HGB CONC 32.6 g/dl (32.0-36.5); MEAN CORPUSCULAR VOLUME 90.5 fl (80.0-96.0); MONO # 0.7 10^3/uL (0.0-0.8); MONO % 11.1 % (2.0-8.0); NEUTROPHILS # 4.3 10^3/uL (1.5-8.5); NEUTROPHILS % 64.8 % (36.0-66.0); PLATELET COUNT, AUTOMATED 271 10^3/uL (150-450); RED BLOOD COUNT 3.15 10^6/uL (4.30-6.10); WHITE BLOOD COUNT 6.6 10^3/uL (4.0-10.0)
[2022-09-02 06:43] LABS: APPEARANCE, URINE MANUAL CLEAR (CLEAR); COLOR, URINE MANUAL YELLOW (YELLOW)
[2022-09-02 06:44] LABS: BILIRUBIN, URINE MANUAL NEGATIVE (NEGATIVE); BLOOD URINE MANUAL NEGATIVE (NEGATIVE); GLUCOSE, URINE (UA) MANUAL NEGATIVE (NEGATIVE); KETONE, URINE MANUAL NEGATIVE (NEGATIVE); LEUKOCYTE ESTERASE, URINE MAN NEGATIVE (NEGATIVE); NITRITE, URINE MANUAL NEGATIVE (NEGATIVE); PROTEIN, URINE MANUAL NEGATIVE (NEGATIVE); SPECIFIC GRAVITY,URINE MANUAL 1.025 (1.002-1.035); UROBILINOGEN, URINE MANUAL NORMAL (NORMAL)
[2022-09-02 06:49] LABS: ALBUMIN 2.6 G/DL (3.2-5.2); BILIRUBIN,TOTAL 0.5 MG/DL (0.3-1.2); CALCIUM LEVEL 9.1 MG/DL (8.3-10.6); CREATININE FOR GFR 1.33 MG/DL (0.70-1.30); GLOMERULAR FILTRATION RATE 57.3 (>49); POTASSIUM SERUM 3.7 MMOL/L (3.5-5.1); TOTAL PROTEIN 6.6 G/DL (5.7-8.2)
[2022-09-02 08:56] LABS: VANCOMYCIN RANDOM 16.5 UG/ML
[2022-09-02] MEDS ORDERED: VANCOMYCIN HCL 1,000 MG, VIAL MATE ADAPTER 1 EACH in D5W 250 ML IV SCH (09:00)
[2022-09-02] MEDS: ASPIRIN 81MG ENTERIC TABLET PO SCH (10:21)
[2022-09-02] MEDS: VANCOMYCIN HCL 750 MG, VIAL MATE ADAPTER 1 EACH in D5W 250 ML IV SCH ×2 (10:21→21:38)
[2022-09-02] MEDS: oxyCODONE 5MG TAB PO PRN ×2 (13:05→21:38)
[2022-09-02 14:00] VITALS: BP 120/76
[2022-09-02] MEDS: HEPARIN SOD (PORCINE) 5000UNITS/ML 1ML VIAL/SYRINGE SQ SCH (21:37)
[2022-09-02 22:00] VITALS: BP 119/77
[2022-09-03] VITALS (8 sets, daily range): BP systolic 117–128; BP diastolic 67–76
[2022-09-03] MEDS ORDERED: oxyCODONE 5MG TAB PO ONE (05:00)
[2022-09-03] MEDS: SODIUM CHLORIDE 0.9% INJ 10 ML SYR IV SCH ×2 (05:07→17:16)
[2022-09-03] MEDS: HEPARIN SOD (PORCINE) 5000UNITS/ML 1ML VIAL/SYRINGE SQ SCH ×3 (05:15→21:55)
[2022-09-03 05:51] LABS: BASO # 0.1 10^3/uL (0.0-0.2); EOS # 0.1 10^3/uL (0.0-0.5); EOS % 2.6 % (0.0-3.0); HEMATOCRIT 26.8 % (42.0-52.0); HEMOGLOBIN 8.8 g/dl (13.5-17.5); LYMPH # 1.3 10^3/uL (1.5-5.0); LYMPH % 25.7 % (24.0-44.0); MEAN CORPUSCULAR HEMOGLOBIN 29.6 pg (27.0-33.0); MEAN CORPUSCULAR HGB CONC 32.8 g/dl (32.0-36.5); MEAN CORPUSCULAR VOLUME 90.2 fl (80.0-96.0); MONO # 0.7 10^3/uL (0.0-0.8); MONO % 13.2 % (2.0-8.0); NEUTROPHILS # 2.9 10^3/uL (1.5-8.5); NEUTROPHILS % 57.1 % (36.0-66.0); PLATELET COUNT, AUTOMATED 227 10^3/uL (150-450); RED BLOOD COUNT 2.97 10^6/uL (4.30-6.10); WHITE BLOOD COUNT 5.1 10^3/uL (4.0-10.0)
[2022-09-03 06:18] LABS: BLOOD UREA NITROGEN 22 MG/DL (9-23); CALCIUM LEVEL 8.5 MG/DL (8.3-10.6); CARBON DIOXIDE LEVEL 19 MMOL/L (20-31); CHLORIDE LEVEL 107 MMOL/L (98-107); CREATININE FOR GFR 1.07 MG/DL (0.70-1.30); GLOMERULAR FILTRATION RATE > 60.0 (>49); GLUCOSE, FASTING 96 MG/DL (74-106); POTASSIUM SERUM 3.9 MMOL/L (3.5-5.1); SODIUM LEVEL 137 MMOL/L (136-145)
[2022-09-03 06:21] LABS: ERYTHROCYTE SEDIMENTATION RATE 67 mm/hr (0-20)
[2022-09-03] MEDS ORDERED: propofoL 200 MG/20 ML VIAL As Ordered ONE (08:28)
[2022-09-03] MEDS ORDERED: LIDOCAINE 2% 100MG/5ML SDV (FOR ANES.) As Ordered ONE (08:28)
[2022-09-03] MEDS ORDERED: fentaNYL 100 MCG/2 ML INJECTION As Ordered ONE (08:29)
[2022-09-03] MEDS ORDERED: MIDAZOLAM INJ 2MG/2ML VIAL As Ordered ONE (08:29)
[2022-09-03] MEDS ORDERED: VANCOMYCIN 1000MG/20ML VIAL As Ordered ONE (08:42)
[2022-09-03] MEDS: ASPIRIN 81MG ENTERIC TABLET PO SCH (08:47)
[2022-09-03] MEDS ORDERED: ONDANSETRON 4MG 2ML VIAL As Ordered ONE (09:21)
[2022-09-03] MEDS ORDERED: BACITRACIN OINTMENT 30GM TUBE As Ordered ONE (09:26)
[2022-09-03] MEDS ORDERED: LR 1,000 ML IV SCH (09:45)
[2022-09-03] MEDS ORDERED: ONDANSETRON 4MG 2ML VIAL IV PRN (09:45)
[2022-09-03] MEDS ORDERED: HYDROMORPHONE HCL 0.5 MG/ 0.5 ML SYRINGE IV PRN (09:45)
[2022-09-03] MEDS ORDERED: oxyCODONE 5MG TAB PO PRN (09:45)
[2022-09-03] MEDS ORDERED: fentaNYL 100 MCG/2 ML INJECTION IV PRN (09:45)
[2022-09-03 10:12] LABS: CRYSTALS, BODY FLUID NONE SEEN (NONE SEEN); SOURCE, BODY FLUID CRYSTALS LT WRIST
[2022-09-03 10:14] LABS: SOURCE, BODY FLUID CRYSTALS LT WRIST
[2022-09-03 10:17] LABS: CRYSTALS, BODY FLUID NONE SEEN (NONE SEEN)
[2022-09-03] MEDS ORDERED: MORPHINE 4 MG/ML 1ML VIAL IV PRN (10:20)
[2022-09-03] MEDS: VANCOMYCIN HCL 750 MG, VIAL MATE ADAPTER 1 EACH in D5W 250 ML IV SCH ×2 (10:30→21:55)
[2022-09-03] MEDS: predniSONE 20 MG TAB PO SCH (13:55)
[2022-09-03] MEDS: allopurinoL 100 MG TAB PO SCH ×2 (13:56→21:55)
[2022-09-03 15:00] LABS: URIC ACID 8.3 MG/DL (3.7-9.2)
[2022-09-03] MEDS: oxyCODONE 5MG TAB PO PRN (22:15)
[2022-09-04 02:09] VITALS: BP 122/71
[2022-09-04 05:18] VITALS: BP 135/79
[2022-09-04 05:59] LABS: BASO % 0.2 % (0.0-1.0); HEMATOCRIT 28.1 % (42.0-52.0); HEMOGLOBIN 9.2 g/dl (13.5-17.5); LYMPH # 0.9 10^3/uL (1.5-5.0); LYMPH % 14.3 % (24.0-44.0); MEAN CORPUSCULAR HEMOGLOBIN 29.7 pg (27.0-33.0); MEAN CORPUSCULAR HGB CONC 32.7 g/dl (32.0-36.5); MEAN CORPUSCULAR VOLUME 90.6 fl (80.0-96.0); MONO # 0.4 10^3/uL (0.0-0.8); MONO % 6.6 % (2.0-8.0); NEUTROPHILS # 4.7 10^3/uL (1.5-8.5); NEUTROPHILS % 78.4 % (36.0-66.0); PLATELET COUNT, AUTOMATED 218 10^3/uL (150-450); WHITE BLOOD COUNT 5.9 10^3/uL (4.0-10.0)
[2022-09-04] MEDS: SODIUM CHLORIDE 0.9% INJ 10 ML SYR IV SCH ×2 (06:00→18:13)
[2022-09-04 06:23] LABS: BLOOD UREA NITROGEN 28 MG/DL (9-23); CARBON DIOXIDE LEVEL 22 MMOL/L (20-31); CHLORIDE LEVEL 102 MMOL/L (98-107); CREATININE FOR GFR 1.26 MG/DL (0.70-1.30); GLOMERULAR FILTRATION RATE > 60.0 (>49); GLUCOSE, FASTING 141 MG/DL (74-106); POTASSIUM SERUM 4.5 MMOL/L (3.5-5.1); SODIUM LEVEL 134 MMOL/L (136-145)
[2022-09-04] MEDS: HEPARIN SOD (PORCINE) 5000UNITS/ML 1ML VIAL/SYRINGE SQ SCH ×3 (06:47→21:28)
[2022-09-04] MEDS: VANCOMYCIN HCL 750 MG, VIAL MATE ADAPTER 1 EACH in D5W 250 ML IV SCH (09:49)
[2022-09-04] MEDS: ASPIRIN 81MG ENTERIC TABLET PO SCH (09:49)
[2022-09-04] MEDS: allopurinoL 100 MG TAB PO SCH ×2 (09:50→21:28)
[2022-09-04] MEDS: predniSONE 20 MG TAB PO SCH (09:50)
[2022-09-04 10:00] VITALS: BP 133/72
[2022-09-04] MEDS: oxyCODONE 5MG TAB PO PRN ×2 (10:04→19:40)
[2022-09-04 14:00] VITALS: BP 133/72
[2022-09-04 18:00] VITALS: BP 133/72
[2022-09-04] MEDS ORDERED: DAPTOmycin 500 MG in NS 50 ML IV SCH (21:00)
[2022-09-04 21:02] VITALS: BP 133/76
[2022-09-05 05:51] VITALS: BP 158/89
[2022-09-05 06:03] LABS: BASO % 0.2 % (0.0-1.0); HEMATOCRIT 27.5 % (42.0-52.0); HEMOGLOBIN 8.7 g/dl (13.5-17.5); LYMPH # 1.4 10^3/uL (1.5-5.0); LYMPH % 22.5 % (24.0-44.0); MEAN CORPUSCULAR HEMOGLOBIN 29.1 pg (27.0-33.0); MEAN CORPUSCULAR HGB CONC 31.6 g/dl (32.0-36.5); MONO # 0.8 10^3/uL (0.0-0.8); MONO % 11.9 % (2.0-8.0); NEUTROPHILS # 4.1 10^3/uL (1.5-8.5); NEUTROPHILS % 65.1 % (36.0-66.0); PLATELET COUNT, AUTOMATED 192 10^3/uL (150-450); RED BLOOD COUNT 2.99 10^6/uL (4.30-6.10); WHITE BLOOD COUNT 6.4 10^3/uL (4.0-10.0)
[2022-09-05] MEDS: HEPARIN SOD (PORCINE) 5000UNITS/ML 1ML VIAL/SYRINGE SQ SCH ×2 (06:06→14:11)
[2022-09-05] MEDS: SODIUM CHLORIDE 0.9% INJ 10 ML SYR IV SCH ×2 (06:07→14:12)
[2022-09-05] MEDS: oxyCODONE 5MG TAB PO PRN (06:08)
[2022-09-05 06:38] LABS: BLOOD UREA NITROGEN 27 MG/DL (9-23); CALCIUM LEVEL 9.1 MG/DL (8.3-10.6); CARBON DIOXIDE LEVEL 24 MMOL/L (20-31); CHLORIDE LEVEL 104 MMOL/L (98-107); CREATININE FOR GFR 1.07 MG/DL (0.70-1.30); GLOMERULAR FILTRATION RATE > 60.0 (>49); GLUCOSE, FASTING 116 MG/DL (74-106); SODIUM LEVEL 138 MMOL/L (136-145)
[2022-09-05] MEDS: predniSONE 20 MG TAB PO SCH (09:43)
[2022-09-05] MEDS: allopurinoL 100 MG TAB PO SCH (09:44)
[2022-09-05] MEDS: ASPIRIN 81MG ENTERIC TABLET PO SCH (09:44)
[2022-09-05] MEDS ORDERED: ALLO10TA PO (10:17)
[2022-09-05] MEDS ORDERED: AMLO1TAB24 PO (10:31)
[2022-09-05] MEDS ORDERED: DAPTOmycin 500 MG in NS 50 ML IV ONE (13:00)
[2022-09-05 14:00] VITALS: BP 143/84
== END 2022-09-05 15:40 | disposition home or self-care (01) | DRG 464 ==
LOC: M ED 16:55 → M ED INP 23:04 → ENRESERV 09-02 00:39 → M MS5PR 09-02 02:00
PROVIDERS: ADMIT Internal Medicine; ATTEND Internal Medicine
PROC: 0R9P0ZZ Drainage of Left Wrist Joint, Open Approach (ICD-10-PCS; 2022-09-03)
PROC: 0JBH0ZZ Excision of Left Lower Arm Subcutaneous Tissue and Fascia, Open Approach (ICD-10-PCS; principal; 2022-09-03 08:30)
DX: M00.9 Pyogenic arthritis, unspecified (principal); N17.9 Acute kidney failure, unspecified; L03.114 Cellulitis of left upper limb; I12.9 Hypertensive chronic kidney disease with stage 1 through stage 4 chronic kidney disease, or unspecified chronic kidney disease; N18.9 Chronic kidney disease, unspecified; M10.9 Gout, unspecified; Z79.899 Other long term (current) drug therapy; Z79.82 Long term (current) use of aspirin; B95.62 Methicillin resistant Staphylococcus aureus infection as the cause of diseases classified elsewhere

== ENCOUNTER 2022-09-12 11:39 | Outpatient (CLI) | payer MEDICARE, BC ==
[~2022-09-12 11:39] MED LIST changes: +ALLO10TA PO; +AMLO1TAB24 PO
[2022-09-12 11:50] VITALS: BP 160/90
[2022-09-12] MEDS ORDERED: SODIUM CHLORIDE 0.9% INJ 10 ML SYR IV PRN (12:00)
[2022-09-12 12:21] LABS: HEMATOCRIT 29.3 % (42.0-52.0); HEMOGLOBIN 9.7 g/dl (13.5-17.5); MEAN CORPUSCULAR HEMOGLOBIN 29.9 pg (27.0-33.0); MEAN CORPUSCULAR HGB CONC 33.1 g/dl (32.0-36.5); MEAN CORPUSCULAR VOLUME 90.4 fl (80.0-96.0); PLATELET COUNT, AUTOMATED 211 10^3/uL (150-450); RED BLOOD COUNT 3.24 10^6/uL (4.30-6.10); WHITE BLOOD COUNT 5.2 10^3/uL (4.0-10.0)
[2022-09-12 12:37] LABS: ERYTHROCYTE SEDIMENTATION RATE 119 mm/hr (0-20)
[2022-09-12 12:48] LABS: BLOOD UREA NITROGEN 20 MG/DL (9-23); CALCIUM LEVEL 8.9 MG/DL (8.3-10.6); CARBON DIOXIDE LEVEL 26 MMOL/L (20-31); CHLORIDE LEVEL 104 MMOL/L (98-107); CREATININE FOR GFR 1.12 MG/DL (0.70-1.30); GLOMERULAR FILTRATION RATE > 60.0 (>49); GLUCOSE, FASTING 91 MG/DL (74-106); POTASSIUM SERUM 3.8 MMOL/L (3.5-5.1); SODIUM LEVEL 138 MMOL/L (136-145)
[2022-09-12 12:49] LABS: CPK CREATINE PHOSPHOKINASE 77 U/L (46-171)
== END 2022-09-12 12:15 | disposition home or self-care (01) ==
LOC: M INFU 11:39
PROVIDERS: ATTEND Internal Medicine Infectious Disease
DX: A41.02 Sepsis due to Methicillin resistant Staphylococcus aureus (principal)

== ENCOUNTER → 2022-09-18 | Outpatient (CLI) | payer MEDICARE, BC ==
[2022-09-18 11:04] LABS: BASO % 0.5 % (0.0-1.0); EOS # 0.2 10^3/uL (0.0-0.5); EOS % 2.6 % (0.0-3.0); HEMATOCRIT 32.5 % (42.0-52.0); HEMOGLOBIN 10.4 g/dl (13.5-17.5); LYMPH # 1.6 10^3/uL (1.5-5.0); LYMPH % 22.1 % (24.0-44.0); MEAN CORPUSCULAR HEMOGLOBIN 29.1 pg (27.0-33.0); MONO # 0.8 10^3/uL (0.0-0.8); MONO % 11.1 % (2.0-8.0); NEUTROPHILS # 4.7 10^3/uL (1.5-8.5); NEUTROPHILS % 63.3 % (36.0-66.0); PLATELET COUNT, AUTOMATED 207 10^3/uL (150-450); RED BLOOD COUNT 3.57 10^6/uL (4.30-6.10); WHITE BLOOD COUNT 7.4 10^3/uL (4.0-10.0)
[2022-09-18 11:26] LABS: ERYTHROCYTE SEDIMENTATION RATE 78 mm/hr (0-20)
[2022-09-18 11:29] LABS: BLOOD UREA NITROGEN 16 MG/DL (9-23); CALCIUM LEVEL 9.4 MG/DL (8.3-10.6); CARBON DIOXIDE LEVEL 26 MMOL/L (20-31); CHLORIDE LEVEL 105 MMOL/L (98-107); CREATININE FOR GFR 0.99 MG/DL (0.70-1.30); GLOMERULAR FILTRATION RATE > 60.0 (>49); GLUCOSE, FASTING 83 MG/DL (74-106); POTASSIUM SERUM 4.2 MMOL/L (3.5-5.1); SODIUM LEVEL 141 MMOL/L (136-145)
== END ==
LOC: M PLALAB 08:23
PROVIDERS: ATTEND Internal Medicine Infectious Disease
DX: M00.032 Staphylococcal arthritis, left wrist (principal)

== ENCOUNTER → 2022-09-27 | Outpatient (CLI) | payer MEDICARE, BC ==
[2022-09-27 15:42] LABS: BASO % 0.4 % (0.0-1.0); EOS # 0.1 10^3/uL (0.0-0.5); EOS % 1.5 % (0.0-3.0); HEMATOCRIT 32.5 % (42.0-52.0); HEMOGLOBIN 10.5 g/dl (13.5-17.5); LYMPH # 1.4 10^3/uL (1.5-5.0); LYMPH % 29.8 % (24.0-44.0); MEAN CORPUSCULAR HEMOGLOBIN 29.1 pg (27.0-33.0); MEAN CORPUSCULAR HGB CONC 32.3 g/dl (32.0-36.5); MONO # 0.5 10^3/uL (0.0-0.8); MONO % 10.4 % (2.0-8.0); NEUTROPHILS # 2.7 10^3/uL (1.5-8.5); NEUTROPHILS % 57.5 % (36.0-66.0); PLATELET COUNT, AUTOMATED 163 10^3/uL (150-450); RED BLOOD COUNT 3.61 10^6/uL (4.30-6.10); WHITE BLOOD COUNT 4.6 10^3/uL (4.0-10.0)
[2022-09-27 16:12] LABS: ERYTHROCYTE SEDIMENTATION RATE 74 mm/hr (0-20)
== END ==
LOC: M PLALAB 14:07
PROVIDERS: ATTEND Physician Assistant
DX: M00.832 Arthritis due to other bacteria, left wrist (principal)

== ENCOUNTER → 2022-10-04 | Outpatient (CLI) | payer MEDICARE, BC ==
[2022-10-04 13:46] LABS: BASO % 0.8 % (0.0-1.0); EOS # 0.1 10^3/uL (0.0-0.5); EOS % 3.3 % (0.0-3.0); HEMATOCRIT 30.2 % (42.0-52.0); HEMOGLOBIN 9.7 g/dl (13.5-17.5); LYMPH # 1.4 10^3/uL (1.5-5.0); LYMPH % 37.7 % (24.0-44.0); MEAN CORPUSCULAR HEMOGLOBIN 28.7 pg (27.0-33.0); MEAN CORPUSCULAR HGB CONC 32.1 g/dl (32.0-36.5); MEAN CORPUSCULAR VOLUME 89.3 fl (80.0-96.0); MONO # 0.8 10^3/uL (0.0-0.8); MONO % 22.2 % (2.0-8.0); NEUTROPHILS # 1.3 10^3/uL (1.5-8.5); NEUTROPHILS % 35.7 % (36.0-66.0); PLATELET COUNT, AUTOMATED 108 10^3/uL (150-450); RED BLOOD COUNT 3.38 10^6/uL (4.30-6.10); WHITE BLOOD COUNT 3.6 10^3/uL (4.0-10.0)
[2022-10-04 14:01] LABS: HEMATOCRIT 30.6 % (42.0-52.0)
[2022-10-04 14:20] LABS: ERYTHROCYTE SEDIMENTATION RATE 47 mm/hr (0-20)
[2022-10-04 14:58] LABS: FERRITIN 426.8 NG/ML (10.5-307.3); VITAMIN B12 LEVEL 247 PG/ML (211-911)
[2022-10-04 17:24] LABS: TOTAL IRON BINDING CAPACITY 319 UG/DL (250-425)
[2022-10-04 17:28] LABS: IRON (FE) 199 UG/DL (65-175); PERCENT SATURATION 62.4 % (19.7-50.0)
[2022-10-05 00:09] LABS: BLOOD UREA NITROGEN 16 MG/DL (9-23); CALCIUM LEVEL 8.9 MG/DL (8.3-10.6); CARBON DIOXIDE LEVEL 27 MMOL/L (20-31); CHLORIDE LEVEL 104 MMOL/L (98-107); CREATININE FOR GFR 0.97 MG/DL (0.70-1.30); GLOMERULAR FILTRATION RATE > 60.0 (>49); GLUCOSE, FASTING 106 MG/DL (74-106); POTASSIUM SERUM 3.7 MMOL/L (3.5-5.1); SODIUM LEVEL 141 MMOL/L (136-145)
== END ==
LOC: M PLALAB 09:26
PROVIDERS: ATTEND Internal Medicine Infectious Disease
DX: M00.032 Staphylococcal arthritis, left wrist (principal); D61.9 Aplastic anemia, unspecified

== ENCOUNTER → 2022-10-25 | Outpatient (CLI) | payer MEDICARE, BC ==
[2022-10-25 17:33] LABS: BASO # 0.1 10^3/uL (0.0-0.2); EOS # 0.1 10^3/uL (0.0-0.5); HEMATOCRIT 38.9 % (42.0-52.0); HEMOGLOBIN 12.5 g/dl (13.5-17.5); LYMPH # 0.9 10^3/uL (1.5-5.0); LYMPH % 37.6 % (24.0-44.0); MEAN CORPUSCULAR HEMOGLOBIN 29.7 pg (27.0-33.0); MEAN CORPUSCULAR HGB CONC 32.1 g/dl (32.0-36.5); MEAN CORPUSCULAR VOLUME 92.4 fl (80.0-96.0); MONO # 0.6 10^3/uL (0.0-0.8); MONO % 22.4 % (2.0-8.0); NEUTROPHILS % 35.6 % (36.0-66.0); PLATELET COUNT, AUTOMATED 181 10^3/uL (150-450); RED BLOOD COUNT 4.21 10^6/uL (4.30-6.10); WHITE BLOOD COUNT 2.5 10^3/uL (4.0-10.0)
[2022-10-25 17:34] LABS: BLOOD UREA NITROGEN 28 MG/DL (9-23); C REACTIVE PROTEIN QUANTITATIV < 0.40 MG/DL (<1.0); CALCIUM LEVEL 9.4 MG/DL (8.3-10.6); CARBON DIOXIDE LEVEL 28 MMOL/L (20-31); CHLORIDE LEVEL 99 MMOL/L (98-107); CREATININE FOR GFR 1.44 MG/DL (0.70-1.30); GLOMERULAR FILTRATION RATE 52.3 (>49); GLUCOSE, FASTING 84 MG/DL (74-106); POTASSIUM SERUM 4.5 MMOL/L (3.5-5.1); SODIUM LEVEL 132 MMOL/L (136-145)
[2022-10-25 17:50] LABS: ERYTHROCYTE SEDIMENTATION RATE 41 mm/hr (0-20)
[2022-10-25 17:58] LABS: NEUTROPHILS # 0.9 10^3/uL (1.5-8.5)
== END ==
LOC: M PLALAB 15:15
PROVIDERS: ATTEND Internal Medicine Infectious Disease
DX: M00.032 Staphylococcal arthritis, left wrist (principal)

== ENCOUNTER → 2023-01-17 | Outpatient (CLI) | payer MEDICARE, BC | LOC: M WUC 12:27 | PROVIDERS: ATTEND Student in an Organized Health Care Education/Training Program | DX: R68.84 Jaw pain (principal); R93.0 Abnormal findings on diagnostic imaging of skull and head, not elsewhere classified ==

== ENCOUNTER → 2023-07-08 | Outpatient (REF) | payer MEDICARE, BC ==
[2023-07-08 17:20] LABS: BASO # 0.1 10^3/uL (0.0-0.2); BASO % 0.5 % (0.0-1.0); EOS # 0.1 10^3/uL (0.0-0.5); EOS % 0.6 % (0.0-3.0); HEMATOCRIT 45.8 % (42.0-52.0); LYMPH # 1.9 10^3/uL (1.5-5.0); LYMPH % 19.6 % (24.0-44.0); MEAN CORPUSCULAR HEMOGLOBIN 30.4 pg (27.0-33.0); MEAN CORPUSCULAR HGB CONC 32.8 g/dl (32.0-36.5); MEAN CORPUSCULAR VOLUME 92.7 fl (80.0-96.0); MONO # 1.3 10^3/uL (0.0-0.8); MONO % 13.5 % (2.0-8.0); NEUTROPHILS # 6.2 10^3/uL (1.5-8.5); NEUTROPHILS % 65.5 % (36.0-66.0); PLATELET COUNT, AUTOMATED 208 10^3/uL (150-450); RED BLOOD COUNT 4.94 10^6/uL (4.30-6.10); WHITE BLOOD COUNT 9.4 10^3/uL (4.0-10.0)
== END ==
LOC: M WUC 16:38
PROVIDERS: ATTEND Nurse Practitioner Family
DX: M25.471 Effusion, right ankle (principal)

== ENCOUNTER → 2023-08-16 | Outpatient (CLI) | payer MEDICARE, BC ==
[2023-08-16 14:16] LABS: BASO % 0.8 % (0.0-1.0); EOS # 0.1 10^3/uL (0.0-0.5); HEMATOCRIT 44.8 % (42.0-52.0); HEMOGLOBIN 14.9 g/dl (13.5-17.5); LYMPH # 1.9 10^3/uL (1.5-5.0); LYMPH % 38.4 % (24.0-44.0); MEAN CORPUSCULAR HEMOGLOBIN 30.6 pg (27.0-33.0); MEAN CORPUSCULAR HGB CONC 33.3 g/dl (32.0-36.5); MONO # 0.9 10^3/uL (0.0-0.8); MONO % 17.2 % (2.0-8.0); NEUTROPHILS # 2.1 10^3/uL (1.5-8.5); PLATELET COUNT, AUTOMATED 182 10^3/uL (150-450); RED BLOOD COUNT 4.87 10^6/uL (4.30-6.10); WHITE BLOOD COUNT 5.1 10^3/uL (4.0-10.0)
[2023-08-16 14:19] LABS: APPEARANCE, URINE CLEAR (CLEAR); BACTERIA, URINE AUTO NEGATIVE (NEGATIVE); BILIRUBIN, URINE AUTO NEGATIVE (NEGATIVE); BLOOD, URINE BLOOD NEGATIVE (NEGATIVE); COLOR, URINE YELLOW (YELLOW); GLUCOSE, URINE (UA) AUTO NEGATIVE (NEGATIVE); KETONE, URINE AUTO NEGATIVE (NEGATIVE); LEUKOCYTE ESTERASE, URINE AUTO NEGATIVE (NEGATIVE); NITRITE, URINE AUTO NEGATIVE (NEGATIVE); PROTEIN, URINE AUTO NEGATIVE (NEGATIVE); RBC, URINE AUTO 0 /HPF (0-3); SPECIFIC GRAVITY URINE AUTO 1.019 (1.002-1.035); SQUAMOUS EPITHELIAL CELL UR AU 0 /HPF (0-6); UROBILINOGEN, URINE AUTO 0.2 mg/dL (0.0-2.0); WBC, URINE AUTO 0 /HPF (0-3)
[2023-08-16 14:34] LABS: URIC ACID 9.2 MG/DL (3.7-9.2)
[2023-08-16 14:43] LABS: ALBUMIN 3.9 G/DL (3.2-5.2); ALKALINE PHOSPHATASE 70 U/L (46-116); ALT/SGPT 69 U/L (7.0-40); AST/SGOT 32 U/L (<34); BLOOD UREA NITROGEN 21 MG/DL (9-23); CALCIUM LEVEL 9.6 MG/DL (8.3-10.6); CARBON DIOXIDE LEVEL 30 MMOL/L (20-31); CHLORIDE LEVEL 100 MMOL/L (98-107); CHOLESTEROL LEVEL 236 MG/DL (<200); CHOLESTEROL RISK RATIO 3.63 (<5); CREATININE FOR GFR 0.93 MG/DL (0.70-1.30); GLOMERULAR FILTRATION RATE > 60.0 (>49); GLUCOSE, FASTING 90 MG/DL (74-106); HDL CHOLESTEROL 64.9 MG/DL (>40); LDL CHOLESTEROL 151.1 MG/DL (<100); NON-HDL-C 171.1 MG/DL; POTASSIUM SERUM 4.3 MMOL/L (3.5-5.1); PROSTATIC SPECIFIC AG MONITOR 1.25 NG/ML (< 4.00); SODIUM LEVEL 136 MMOL/L (136-145); TOTAL PROTEIN 7.2 G/DL (5.7-8.2); TRIGLYCERIDES LEVEL 100 MG/DL (<150)
== END ==
LOC: M PLALAB 09:55
PROVIDERS: ATTEND Family Medicine
DX: R35.0 Frequency of micturition (principal); Z79.899 Other long term (current) drug therapy; M10.9 Gout, unspecified

== ENCOUNTER → 2023-10-23 | Outpatient (REF) | payer MEDICARE, BC | LOC: M LAB REF 16:18 | PROVIDERS: ATTEND Internal Medicine | DX: M10.9 Gout, unspecified (principal) ==

== ENCOUNTER → 2024-01-21 | Outpatient (CLI) | payer MEDICARE, BC | LOC: M SOG 07:55 | PROVIDERS: ATTEND Physician Assistant | DX: M79.644 Pain in right finger(s) (principal); R93.7 Abnormal findings on diagnostic imaging of other parts of musculoskeletal system ==

== ENCOUNTER → 2024-02-03 | Outpatient (CLI) | payer MEDICARE, BC | LOC: M ADAMS 10:53 | PROVIDERS: ATTEND Internal Medicine | DX: M25.572 Pain in left ankle and joints of left foot (principal); M71.472 Calcium deposit in bursa, left ankle and foot ==

== ENCOUNTER → 2024-04-06 | Outpatient (CLI) | payer MEDICARE, BC | LOC: M WUC 10:34 | PROVIDERS: ATTEND Nurse Practitioner Family | DX: M25.531 Pain in right wrist (principal); M19.031 Primary osteoarthritis, right wrist; M79.89 Other specified soft tissue disorders ==

== ENCOUNTER → 2024-04-23 | Outpatient (REF) | payer MEDICARE, BC | LOC: M LAB REF 11:26 | PROVIDERS: ATTEND Internal Medicine | DX: M10.9 Gout, unspecified (principal) ==

== ENCOUNTER → 2024-05-08 | Outpatient (CLI) | payer MEDICARE, BC ==
[~2024-05-08] MED LIST changes: +AMOX875T2; +ISOVUE-370 76% 100ML VIAL As Ordered ONE; +MELO7.5T35 PO; +TAMS1CAP17 PO
== END ==
LOC: M RAD 12:40
PROVIDERS: ATTEND Otolaryngology
DX: D10.4 Benign neoplasm of tonsil (principal); J35.1 Hypertrophy of tonsils; J36 Peritonsillar abscess
CPT/HCPCS: 70491; Q9967

== ENCOUNTER 2024-05-13 17:26 | Emergency (ER) | payer MEDICARE, BC ==
[~2024-05-13] VITALS: Ht 177.8 cm; Wt 82.8 kg
[~2024-05-13 17:26] MED LIST changes: -AMOX875T2; -ISOVUE-370 76% 100ML VIAL As Ordered ONE
[2024-05-13] MEDS ORDERED: AMOX875T2 (17:35)
[2024-05-13 19:26] VITALS: BP 151/91; TEMP 97.7; O2SAT 100
[2024-05-13 21:29] LABS: BASO % 0.6 % (0.0-1.0); EOS # 0.1 10^3/uL (0.0-0.5); EOS % 1.9 % (0.0-3.0); HEMATOCRIT 43.5 % (42.0-52.0); HEMOGLOBIN 15.3 g/dl (13.5-17.5); LYMPH # 1.4 10^3/uL (1.5-5.0); MEAN CORPUSCULAR HEMOGLOBIN 30.9 pg (27.0-33.0); MEAN CORPUSCULAR HGB CONC 35.2 g/dl (32.0-36.5); MEAN CORPUSCULAR VOLUME 87.9 fl (80.0-96.0); MONO # 0.9 10^3/uL (0.0-0.8); MONO % 17.8 % (2.0-8.0); NEUTROPHILS # 2.5 10^3/uL (1.5-8.5); NEUTROPHILS % 51.5 % (36.0-66.0); PLATELET COUNT, AUTOMATED 181 10^3/uL (150-450); RED BLOOD COUNT 4.95 10^6/uL (4.30-6.10); WHITE BLOOD COUNT 4.8 10^3/uL (4.0-10.0)
[2024-05-13 21:45] LABS: BLOOD UREA NITROGEN 10 MG/DL (9-23); CALCIUM LEVEL 10.1 MG/DL (8.3-10.6); CARBON DIOXIDE LEVEL 28 MMOL/L (20-31); CHLORIDE LEVEL 91 MMOL/L (98-107); CREATININE FOR GFR 0.89 MG/DL (0.70-1.30); GLOMERULAR FILTRATION RATE > 60.0 (>49); GLUCOSE, FASTING 89 MG/DL (74-106); POTASSIUM SERUM 3.7 MMOL/L (3.5-5.1); SODIUM LEVEL 126 MMOL/L (136-145)
== END 2024-05-13 22:38 | disposition left against medical advice (07) ==
LOC: M ED 17:26
DX: R53.83 Other fatigue (principal); I10 Essential (primary) hypertension; K21.9 Gastro-esophageal reflux disease without esophagitis; Z79.811 Long term (current) use of aromatase inhibitors; Z79.899 Other long term (current) drug therapy; Z53.9 Procedure and treatment not carried out, unspecified reason

== ENCOUNTER 2024-05-18 11:55 | Day surgery (SDC) | payer MEDICARE, BC ==
[~2024-05-18] VITALS: Ht 177.8 cm; Wt 81.0 kg
[~2024-05-18 11:55] MED LIST changes: +ACETAMINOPHEN 1000MG 100ML IV BAG As Ordered ONE; +AMOX875T2; +LIDOCAINE 2% 100MG/5ML SDV (FOR ANES.) As Ordered ONE; +MIDAZOLAM INJ 2MG/2ML VIAL As Ordered ONE; +ONDANSETRON 4MG 2ML VIAL As Ordered ONE; +ROCURONIUM BROMIDE 50MG/5ML VIAL As Ordered ONE; +fentaNYL 100 MCG/2 ML INJECTION As Ordered ONE; +propofoL 200 MG/20 ML VIAL As Ordered ONE
[2024-05-18] MEDS ORDERED: LR 1,000 ML IV SCH ×2 (13:10→14:40)
[2024-05-18] MEDS ORDERED: OXYMETAZOLINE 0.05% NASAL SPRAY (AFRIN) As Ordered ONE (13:39)
[2024-05-18] MEDS ORDERED: SUGAMMADEX SODIUM 500 MG/5 ML VIAL (BRIDION) As Ordered ONE (14:10)
[2024-05-18] MEDS ORDERED: HYDROMORPHONE HCL 0.5 MG/ 0.5 ML SYRINGE IV PRN (14:40)
[2024-05-18] MEDS ORDERED: oxyCODONE 5MG TAB PO PRN (14:40)
[2024-05-18] MEDS ORDERED: fentaNYL 100 MCG/2 ML INJECTION IV PRN (14:40)
[2024-05-18] MEDS ORDERED: ONDANSETRON 4MG 2ML VIAL IV PRN (14:40)
[2024-05-18] MEDS: HYDROcodone/APAP LIQUID 7.5-325MG 15ML UDC (LORTAB ELIXIR) PO PRN (15:37)
[2024-05-18 16:35] VITALS: BP 168/88; TEMP 97.6; O2SAT 97
== END 2024-05-18 16:41 | disposition home or self-care (01) ==
LOC: M SDC 11:55
PROVIDERS: ATTEND Otolaryngology
DX: C09.0 Malignant neoplasm of tonsillar fossa (principal); I10 Essential (primary) hypertension; E78.5 Hyperlipidemia, unspecified; M10.9 Gout, unspecified; K76.0 Fatty (change of) liver, not elsewhere classified; N40.0 Benign prostatic hyperplasia without lower urinary tract symptoms; Z79.899 Other long term (current) drug therapy
CPT/HCPCS: 42826; 88305; J0131; J0665; J1100; J2250; J2405; J3010

== ENCOUNTER → 2024-06-04 | Outpatient (CLI) | payer MEDICARE, BC ==
[~2024-06-04] MED LIST changes: -ACETAMINOPHEN 1000MG 100ML IV BAG As Ordered ONE; -LIDOCAINE 2% 100MG/5ML SDV (FOR ANES.) As Ordered ONE; -MIDAZOLAM INJ 2MG/2ML VIAL As Ordered ONE; -ONDANSETRON 4MG 2ML VIAL As Ordered ONE; -ROCURONIUM BROMIDE 50MG/5ML VIAL As Ordered ONE; -fentaNYL 100 MCG/2 ML INJECTION As Ordered ONE; -propofoL 200 MG/20 ML VIAL As Ordered ONE
== END ==
LOC: M ONCR 10:58
PROVIDERS: ATTEND General Practice
DX: C09.0 Malignant neoplasm of tonsillar fossa (principal); Z79.899 Other long term (current) drug therapy
CPT/HCPCS: 31575; G0463

== ENCOUNTER → 2024-06-22 | Outpatient (CLI) | payer MEDICARE, BC | LOC: M PLARAD 14:37 | PROVIDERS: ATTEND General Practice | DX: C09.0 Malignant neoplasm of tonsillar fossa (principal) | CPT/HCPCS: 78815; A9552 ==

== ENCOUNTER 2024-06-25 10:27 | Outpatient (RCR) | payer MEDICARE, BC | END 2024-07-02 | LOC: M ONCR 10:27 | PROVIDERS: ATTEND General Practice | DX: Z51.0 Encounter for antineoplastic radiation therapy (principal); C09.0 Malignant neoplasm of tonsillar fossa ==

== ENCOUNTER → 2024-07-22 | Outpatient (CLI) | payer MEDICARE, BC ==
[~2024-07-22] MED LIST changes: +OXYC1SOL3 PO
== END ==
LOC: M SOG 07:54
PROVIDERS: ATTEND Orthopaedic Surgery
DX: M50.322 Other cervical disc degeneration at C5-C6 level (principal); M50.323 Other cervical disc degeneration at C6-C7 level; M50.33 Other cervical disc degeneration, cervicothoracic region

== ENCOUNTER 2024-07-29 09:30 | Outpatient (RCR) | payer MEDICARE, BC | END 2024-08-01 | LOC: M ONCR 09:30 | PROVIDERS: ATTEND General Practice | DX: Z51.0 Encounter for antineoplastic radiation therapy (principal); C09.0 Malignant neoplasm of tonsillar fossa ==

== ENCOUNTER 2024-08-23 16:22 | Observation (INO) | payer MEDICARE, BC ==
[~2024-08-23] VITALS: Ht 177.8 cm; Wt 69.0 kg
[~2024-08-23 16:22] MED LIST changes: +COLC0.6T47 PO; +LACT20EL PO; +MAGICMW PO; +ONDA-282 PO
[2024-08-23 17:07] LABS: BASO % 0.2 % (0.0-1.0); HEMATOCRIT 46.9 % (42.0-52.0); HEMOGLOBIN 15.5 g/dl (13.5-17.5); LYMPH # 0.3 10^3/uL (1.5-5.0); LYMPH % 3.3 % (24.0-44.0); MEAN CORPUSCULAR HEMOGLOBIN 29.8 pg (27.0-33.0); MONO # 0.9 10^3/uL (0.0-0.8); MONO % 10.7 % (2.0-8.0); NEUTROPHILS # 7.4 10^3/uL (1.5-8.5); NEUTROPHILS % 85.2 % (36.0-66.0); PLATELET COUNT, AUTOMATED 217 10^3/uL (150-450); RED BLOOD COUNT 5.21 10^6/uL (4.30-6.10); WHITE BLOOD COUNT 8.7 10^3/uL (4.0-10.0)
[2024-08-23 17:32] LABS: ALBUMIN 4.1 G/DL (3.2-5.2); BILIRUBIN,DIRECT 0.3 MG/DL (<0.4); BILIRUBIN,TOTAL 0.7 MG/DL (0.3-1.2); TOTAL PROTEIN 8.7 G/DL (5.7-8.2)
[2024-08-23] MEDS: GLYCERIN ADULT SUPP PR ONE (20:21)
[2024-08-23] MEDS: LORazepam 2 MG/ML 1ML VIAL IV STA (21:11)
[2024-08-24] MEDS ORDERED: MAGNESIUM CITRATE 300ML BTL PO ONE (00:05)
[2024-08-24 00:42] LABS: CREATININE FOR GFR 2.11 MG/DL (0.70-1.30); GLOMERULAR FILTRATION RATE 33.4 (>49); MAGNESIUM LEVEL 2.2 MG/DL (1.8-2.4); POTASSIUM SERUM 4.2 MMOL/L (3.5-5.1)
[2024-08-24] MEDS ORDERED: ACETAMINOPHEN 325 MG TAB PO PRN (00:55)
[2024-08-24] MEDS: LR 1,000 ML IV ONE (01:04)
[2024-08-24] MEDS: NS (Normal Saline) 0.9% 1,000 ML IV SCH (01:15)
[2024-08-24] MEDS ORDERED: BISACODYL 10MG SUPP PR PRN (01:30)
[2024-08-24] MEDS: DOCUSATE SODIUM 100MG CAPSULE PO ONE (02:22)
[2024-08-24 02:39] LABS: IONIZED CALCIUM 4.8 MG/DL (4.5-5.3)
[2024-08-24 03:11] LABS: CALCIUM LEVEL 10.7 MG/DL (8.3-10.6); CREATININE FOR GFR 1.52 MG/DL (0.70-1.30); GLOMERULAR FILTRATION RATE 48.8 (>49); MAGNESIUM LEVEL 2.2 MG/DL (1.8-2.4); POTASSIUM SERUM 4.7 MMOL/L (3.5-5.1)
[2024-08-24 06:10] LABS: IONIZED CALCIUM 4.8 MG/DL (4.5-5.3)
[2024-08-24 06:14] LABS: BASO % 0.2 % (0.0-1.0); HEMATOCRIT 45.1 % (42.0-52.0); HEMOGLOBIN 15.1 g/dl (13.5-17.5); LYMPH # 0.4 10^3/uL (1.5-5.0); LYMPH % 4.5 % (24.0-44.0); MEAN CORPUSCULAR HEMOGLOBIN 30.3 pg (27.0-33.0); MEAN CORPUSCULAR HGB CONC 33.5 g/dl (32.0-36.5); MEAN CORPUSCULAR VOLUME 90.4 fl (80.0-96.0); MONO # 1.3 10^3/uL (0.0-0.8); NEUTROPHILS # 7.9 10^3/uL (1.5-8.5); PLATELET COUNT, AUTOMATED 181 10^3/uL (150-450); RED BLOOD COUNT 4.99 10^6/uL (4.30-6.10); WHITE BLOOD COUNT 9.6 10^3/uL (4.0-10.0)
[2024-08-24 07:06] LABS: ALBUMIN 3.6 G/DL (3.2-5.2); BILIRUBIN,TOTAL 0.6 MG/DL (0.3-1.2); CALCIUM LEVEL 10.5 MG/DL (8.3-10.6); CREATININE FOR GFR 1.28 MG/DL (0.70-1.30); GLOMERULAR FILTRATION RATE 59.5 (>49); MAGNESIUM LEVEL 2.2 MG/DL (1.8-2.4); POTASSIUM SERUM 4.4 MMOL/L (3.5-5.1); TOTAL PROTEIN 8.1 G/DL (5.7-8.2)
[2024-08-24] MEDS: FLEET ENEMA PR SCH (08:51)
[2024-08-24] MEDS: BISACODYL 10MG SUPP PR SCH (08:51)
[2024-08-24] MEDS: MIRALAX *UNIT DOSE* 17GM PACKET PO SCH (08:52)
[2024-08-24] MEDS: DOCUSATE SODIUM 100MG CAPSULE PO SCH (08:52)
[2024-08-24] MEDS: SENNA 8.6 MG TAB (SENOKOT) PO SCH (08:52)
[2024-08-24] MEDS ORDERED: BISACODYL 10MG SUPP PR SCH (09:00)
[2024-08-24] MEDS ORDERED: ALLO300T2 PO (09:35)
[2024-08-24] MEDS ORDERED: ROSU20TA86 PO (09:43)
[2024-08-24] MEDS ORDERED: HOME MED LIST COMPLETE! XX SCH (09:50)
[2024-08-24] MEDS: GOLYTELY SOLN 4000 ML BTL PO ONE (10:30)
[2024-08-24] MEDS ORDERED: ISOVUE-370 76% 100ML VIAL As Ordered ONE (10:52)
[2024-08-24] MEDS: allopurinoL 300 MG TAB PO SCH (14:22)
[2024-08-24 16:23] VITALS: BP 150/86; TEMP 97.5; O2SAT 100
[2024-08-24 16:31] LABS: CREATININE,RANDOM URINE 89.3 MG/DL
[2024-08-24] MEDS: MAGIC MOUTHWASH 5ML ORAL SYRINGE SSP SCH (16:44)
[2024-08-24] MEDS: TAMSULOSIN 0.4 MG CAP PO SCH (18:15)
[2024-08-24 20:00] VITALS: BP 143/82; TEMP 97.7; O2SAT 98
[2024-08-24] MEDS: ROSUVASTATIN 10 MG TAB (CRESTOR) PO SCH (21:00)
[2024-08-24] MEDS: HEPARIN SOD (PORCINE) 5000UNITS/ML 1ML VIAL/SYRINGE SQ SCH (21:01)
[2024-08-25 04:00] VITALS: BP 141/81; TEMP 97.7; O2SAT 93
[2024-08-25 05:17] LABS: BASO % 0.2 % (0.0-1.0); EOS % 0.6 % (0.0-3.0); HEMATOCRIT 35.2 % (42.0-52.0); LYMPH # 0.3 10^3/uL (1.5-5.0); LYMPH % 6.1 % (24.0-44.0); MEAN CORPUSCULAR HEMOGLOBIN 30.2 pg (27.0-33.0); MEAN CORPUSCULAR HGB CONC 33.2 g/dl (32.0-36.5); MONO # 0.8 10^3/uL (0.0-0.8); MONO % 15.8 % (2.0-8.0); NEUTROPHILS # 3.9 10^3/uL (1.5-8.5); NEUTROPHILS % 77.1 % (36.0-66.0); PLATELET COUNT, AUTOMATED 141 10^3/uL (150-450); RED BLOOD COUNT 3.87 10^6/uL (4.30-6.10); WHITE BLOOD COUNT 5.1 10^3/uL (4.0-10.0)
[2024-08-25 05:41] LABS: ALBUMIN 2.9 G/DL (3.2-5.2); ALKALINE PHOSPHATASE 52 U/L (40-129); ALT/SGPT 15 U/L (7.0-40); AST/SGOT 24 U/L (<34); BILIRUBIN,TOTAL 0.5 MG/DL (0.3-1.2); BLOOD UREA NITROGEN 41 MG/DL (9-23); CARBON DIOXIDE LEVEL 23 MMOL/L (20-31); CHLORIDE LEVEL 108 MMOL/L (98-107); CREATININE FOR GFR 0.88 MG/DL (0.70-1.30); GLOMERULAR FILTRATION RATE > 60.0 (>49); GLUCOSE, FASTING 84 MG/DL (74-106); MAGNESIUM LEVEL 1.5 MG/DL (1.8-2.4); POTASSIUM SERUM 3.8 MMOL/L (3.5-5.1); SODIUM LEVEL 145 MMOL/L (136-145); TOTAL PROTEIN 6.2 G/DL (5.7-8.2)
[2024-08-25] MEDS ORDERED: LISI20TA33 PO (08:49)
[2024-08-25] MEDS ORDERED: SENO8.6T5 PO (08:49)
[2024-08-25] MEDS ORDERED: COLA100C5 PO (08:49)
[2024-08-25] MEDS ORDERED: MIRA33506 PO (08:49)
[2024-08-26 07:34] LABS: HEMOGLOBIN 11.7 g/dl (13.5-17.5)
== END 2024-08-25 09:35 | disposition home or self-care (01) ==
LOC: EDBD 16:22 → M ED 16:22 → M ED INP 16:23 → M MSPAV 08-24 16:08
PROVIDERS: ADMIT Family Medicine; ATTEND Internal Medicine
DX: K56.41 Fecal impaction (principal); N17.9 Acute kidney failure, unspecified; I10 Essential (primary) hypertension; E78.5 Hyperlipidemia, unspecified; M10.9 Gout, unspecified; N40.0 Benign prostatic hyperplasia without lower urinary tract symptoms; M00.862 Arthritis due to other bacteria, left knee; Z79.899 Other long term (current) drug therapy
CPT/HCPCS: 36415; 74018; 74177; 76775; 80047; 80048; 80053; 80076; 81001; 82330; 82550; 82570; 83690; 83735; 84540; 85025; 93005; 96361; 96372; 96374; 96375; 99285; G0378; J2060; Q9967

== ENCOUNTER 2024-08-28 09:27 | Outpatient (RCR) | payer MEDICARE, BC ==
[~2024-08-28 09:27] MED LIST changes: +ALLO300T2 PO; +COLA100C5 PO; +LISI20TA33 PO; +MIRA33506 PO; +ROSU20TA86 PO; +SENO8.6T5 PO
[2024-09-01] MEDS ORDERED: OXYC1SOL3 PO (10:43)
== END 2024-09-01 ==
LOC: M ONCR 09:27
PROVIDERS: ATTEND General Practice
DX: Z51.0 Encounter for antineoplastic radiation therapy (principal); C09.0 Malignant neoplasm of tonsillar fossa

== ENCOUNTER → 2024-09-04 | Outpatient (CLI) | payer MEDICARE, BC | LOC: M ONCR 08:17 | PROVIDERS: ATTEND General Practice | DX: C09.0 Malignant neoplasm of tonsillar fossa (principal); Z92.21 Personal history of antineoplastic chemotherapy; Z92.3 Personal history of irradiation; Z79.899 Other long term (current) drug therapy ==

== ENCOUNTER → 2024-09-07 | Outpatient (REF) | payer MEDICARE, BC ==
[2024-09-07 19:33] LABS: BASOPHILS 1 % (0-1); LYMPHOCYTES 9 % (16-44); MONOCYTES 13 % (0-5); NEUTROPHILS 76 % (28-66)
[2024-09-07 19:34] LABS: ANISOCYTOSIS 1+; PLATELET ESTIMATE NORMAL (NORMAL)
[2024-09-07 19:35] LABS: OVALOCYTES 1+; POIKILOCYTOSIS 2+
[2024-09-07 19:36] LABS: BURR CELLS 2+
== END ==
LOC: M LAB REF 16:13
PROVIDERS: ATTEND Internal Medicine
DX: D72.9 Disorder of white blood cells, unspecified (principal)

== ENCOUNTER → 2024-09-10 | Outpatient (CLI) | payer MEDICARE, BC ==
[2024-09-10] MEDS: NS (Normal Saline) 0.9% 1,000 ML IV ONE (09:23)
[2024-09-10] MEDS: dexAMETHasone 20MG/5ML VIAL IV ONE (09:23)
== END ==
LOC: M ONCR 08:26
PROVIDERS: ATTEND General Practice
DX: E86.0 Dehydration (principal); K12.30 Oral mucositis (ulcerative), unspecified
CPT/HCPCS: G0463; J1100

== ENCOUNTER → 2024-09-24 | Outpatient (CLI) | payer MEDICARE, BC | LOC: M ONCR 11:03 | PROVIDERS: ATTEND General Practice | DX: C09.0 Malignant neoplasm of tonsillar fossa (principal) ==

== ENCOUNTER → 2024-12-01 | Outpatient (CLI) | payer MEDICARE, BC ==
[~2024-12-01] MED LIST changes: +LISI10TA22 PO
== END ==
LOC: M PLARAD 12:38
PROVIDERS: ATTEND General Practice
DX: C09.0 Malignant neoplasm of tonsillar fossa (principal)
CPT/HCPCS: 78815; A9552

== ENCOUNTER → 2024-12-03 | Outpatient (CLI) | payer MEDICARE, BC | LOC: M ONCR 10:11 | PROVIDERS: ATTEND General Practice | DX: C09.0 Malignant neoplasm of tonsillar fossa (principal); I89.0 Lymphedema, not elsewhere classified; R25.2 Cramp and spasm; Z92.3 Personal history of irradiation; Z79.1 Long term (current) use of non-steroidal anti-inflammatories (NSAID); Z79.899 Other long term (current) drug therapy | CPT/HCPCS: 31575; G0463 ==

== ENCOUNTER 2024-12-11 07:55 | Day surgery (SDC) | payer MEDICARE, BC ==
[~2024-12-11] VITALS: Ht 177.8 cm; Wt 68.0 kg
[~2024-12-11 07:55] MED LIST changes: +ceFAZolin SOD 2 GM IV ONCE IV ONE
[2024-12-11] MEDS ORDERED: fentaNYL 250 MCG/5 ML INJECTION As Ordered ONE (08:41)
[2024-12-11] MEDS ORDERED: SUGAMMADEX SODIUM 500 MG/5 ML VIAL (BRIDION) As Ordered ONE (08:42)
[2024-12-11] MEDS ORDERED: ACETAMINOPHEN 1000MG/100ML IV BAG As Ordered ONE (08:42)
[2024-12-11] MEDS ORDERED: ONDANSETRON 4MG 2ML VIAL As Ordered ONE (08:42)
[2024-12-11] MEDS ORDERED: propofoL 200 MG/20 ML VIAL As Ordered ONE (08:42)
[2024-12-11] MEDS ORDERED: ROCURONIUM BROMIDE 50MG/5ML VIAL As Ordered ONE (08:42)
[2024-12-11] MEDS ORDERED: LIDOCAINE 2% 100MG/5ML SDV (FOR ANES.) As Ordered ONE (08:42)
[2024-12-11] MEDS ORDERED: MIDAZOLAM INJ 2MG/2ML VIAL As Ordered ONE (08:42)
[2024-12-11] MEDS: LR 1,000 ML IV SCH (09:03)
[2024-12-11] MEDS ORDERED: VASOPRESSIN INJ 20UNITS/ML 1ML VIAL As Ordered ONE (10:35)
[2024-12-11] MEDS ORDERED: ePHEDrine SULFATE 25 MG/5 ML(5MG/ML) SYRINGE As Ordered ONE (10:50)
[2024-12-11] MEDS ORDERED: KETOROLAC 30 MG/ML 1ML VIAL As Ordered ONE (10:53)
[2024-12-11] MEDS ORDERED: oxyCODONE 5MG TAB PO PRN (11:30)
[2024-12-11] MEDS ORDERED: LR 1,000 ML IV SCH (11:30)
[2024-12-11] MEDS ORDERED: ONDANSETRON 4MG 2ML VIAL IV PRN (11:30)
[2024-12-11] MEDS ORDERED: HYDROMORPHONE HCL 0.5 MG/ 0.5 ML SYRINGE IV PRN (11:30)
[2024-12-11] MEDS ORDERED: fentaNYL 100 MCG/2 ML INJECTION IV PRN (11:30)
[2024-12-11 12:15] VITALS: BP 138/72; TEMP 96.8; O2SAT 98
== END 2024-12-11 13:15 | disposition home or self-care (01) ==
LOC: M SDC 07:55
PROVIDERS: ATTEND Surgery
DX: K40.90 Unilateral inguinal hernia, without obstruction or gangrene, not specified as recurrent (principal); I10 Essential (primary) hypertension; E78.00 Pure hypercholesterolemia, unspecified; N40.0 Benign prostatic hyperplasia without lower urinary tract symptoms; M10.9 Gout, unspecified; K21.9 Gastro-esophageal reflux disease without esophagitis; Z79.899 Other long term (current) drug therapy; Z79.1 Long term (current) use of non-steroidal anti-inflammatories (NSAID); Z85.818 Personal history of malignant neoplasm of other sites of lip, oral cavity, and pharynx; Z90.89 Acquired absence of other organs; Z92.3 Personal history of irradiation
CPT/HCPCS: 49650; C1781; J0131; J0665; J1100; J1885; J2250; J2405; J2598; J3010

== ENCOUNTER → 2025-03-08 | Outpatient (CLI) | payer MEDICARE, BC ==
[~2025-03-08] MED LIST changes: -ceFAZolin SOD 2 GM IV ONCE IV ONE
[2025-03-08 12:28] LABS: FREE T4 1.21 NG/DL (0.89-1.76)
== END ==
LOC: M ONCR 10:58
PROVIDERS: ATTEND General Practice
DX: C09.0 Malignant neoplasm of tonsillar fossa (principal); Z92.3 Personal history of irradiation; Z79.1 Long term (current) use of non-steroidal anti-inflammatories (NSAID); Z79.899 Other long term (current) drug therapy
CPT/HCPCS: 31575; 36415; 84439; 84443; G0463

== ENCOUNTER → 2025-06-08 | Outpatient (CLI) | payer MEDICARE, BC ==
[~2025-06-08] MED LIST changes: -COLC0.6T47 PO; +COLC0.6T53 PO; +SENN-225 PO; -SENO8.6T5 PO
== END ==
LOC: M ONCR 08:50
PROVIDERS: ATTEND General Practice
DX: Z08 Encounter for follow-up examination after completed treatment for malignant neoplasm (principal); Z85.819 Personal history of malignant neoplasm of unspecified site of lip, oral cavity, and pharynx; Z92.3 Personal history of irradiation; Z79.1 Long term (current) use of non-steroidal anti-inflammatories (NSAID); Z79.899 Other long term (current) drug therapy; I89.0 Lymphedema, not elsewhere classified
CPT/HCPCS: 31575; G0463

== ENCOUNTER → 2025-08-31 | Outpatient (CLI) | payer MEDICARE, BC ==
[~2025-08-31] MED LIST changes: +ISOVUE-370 76% 100 ML VIAL As Ordered ONE
== END ==
LOC: M RAD 09:56
PROVIDERS: ATTEND General Practice
DX: C09.0 Malignant neoplasm of tonsillar fossa (principal)
CPT/HCPCS: 70491; 82565; Q9967